=== PATIENT | female | born 1985 | race Caucasian/White ===

== ENCOUNTER 2016-11-15 12:09 | Emergency (ER) | payer OTHER ==
[~2016-11-15] VITALS: Ht 165.1 cm; Wt 113.4 kg
--- NOTE | 2016-11-15 12:40 | ED Chest Pain ---
General Chief Complaint: Chest Pain Stated Complaint: CHEST/SOB/PAIN IN BACK Nursing Triage Note: PT C/O CHEST PAIN ACCOMPANIED BY DYSPNEA AND DIAPHORESIS SINCE 1000 THIS AM. SHE STATES IT GOES ALL ACROSS HER CHEST AND RADIATES TO HER BACK. SHE DENIES N/V OR ANY OTHER S/S AT THIS TIME. Nursing Sepsis Screen: No Definite Risk Source: patient Exam Limitations: no limitations History of Present Illness Time seen by provider: 12:36 Initial Comments To ER with reports of chest pain. She was at work today she developed this chest pain at 10 a.m. This was a sharp pain in the left side of her chest that began to spread to the right side of her chest and through to her back. She also had palpitations. She states that her blood pressure was checked at that time and found to be 180/100. She does have a history of hypertension and she takes Norvasc for this. She did have some sweating and shortness of breath associated with this but no syncope or near syncope. She is a nonsmoker. She does not feel anxious. She has no history of heart disease that she knows of other than hypertension. She states that her father did of congestive heart failure at the age of 50. Timing/Duration: 1-3 hours Severity/Quality: moderate Location: central Radiation: no radiation Activities at Onset: none Prior CP/Workup: no prior chest pain, no prior cardiac workup ASA po SALES EFFECTIVENESS MANAGER: No NTG SL SALES EFFECTIVENESS MANAGER: No Associated Symptoms: No abdominal pain, back pain, diaphoresis, No dizziness, No edema, No fatigue, No fever/chills, No headache, No heartburn, No nausea/ vomiting, No rash, shortness of breath, No swelling/lump in chest, No syncope, No weakness Allergies and Home Medications Allergies Coded Allergies: No Allergy Information Available (Unverified , 11/15/16) Review of Systems Constitutional: see HPI, No chills, No fever EENTM: No Symptoms Reported Respiratory: See HPI, Denies Cough, Denies Orthopnea, Shortness of Air Cardiovascular: No Symptoms Reported, Denies Chest Pain, Denies Edema, Denies Irregular Heart Rate, Denies Lightheadedness, Palpitations Gastrointestinal: No Symptoms Reported Genitourinary: No Symptoms Reported Musculoskeletal: no symptoms reported Skin: no symptoms reported Psychiatric/Neurological: No Symptoms Reported Endocrine: No Symptoms Reported Hematologic/Lymphatic: No Symptoms Reported Past Iivpwee-Cqlnis-Eryisu Hx Patient Social History Alcohol Use: Denies Use Recreational Drug Use: No Smoking Status: Never a Smoker 2nd Hand Smoke Exposure: No Recent Foreign Travel: No Contact w/Someone Who Travel: No Recent Infectious Disease Expo: No Recent Hopitalizations: No Seasonal Allergies Seasonal Allergies: No Surgeries Surgeries: Gallbladder Cardiovascular Cardiac Disorders: Hypertension Physical Exam Vital Signs Vital Sign - Last 12Hours Capillary Refill : Less Than 3 Seconds General Appearance: No Apparent Distress, WD/WN, Obese HEENT: PERRL/EOMI, TMs Normal Neck: Full Range of Motion, Normal Inspection Respiratory: Chest Non Tender, Lungs Clear, Normal Breath Sounds, No Accessory Muscle Use, No Respiratory Distress Cardiovascular: Regular Rate, Rhythm, No Edema, Normal Peripheral Pulses Gastrointestinal: Non Tender, Soft Extremity: Normal Capillary Refill, Normal Inspection Neurologic/Psychiatric: Alert, Oriented x3, No Motor/Sensory Deficits Skin: Normal Color, Warm/Dry Progress/Results/Core Measures Results/Orders Lab Results Laboratory Tests Test 11/15/16 12:40 11/15/16 12:42 Range/Units Urine Color YELLOW Urine Clarity CLEAR Urine pH 7 5-9 Urine Specific [place] 1.010 L 1.016-1.022 Urine Protein NEGATIVE NEGATIVE Urine Glucose (UA) NEGATIVE NEGATIVE Urine Ketones NEGATIVE NEGATIVE Urine Nitrite NEGATIVE NEGATIVE Urine Bilirubin NEGATIVE NEGATIVE Urine Urobilinogen NORMAL NORMAL MG/DL Urine Leukocyte Esterase NEGATIVE NEGATIVE Urine RBC (Auto) NEGATIVE NEGATIVE Urine RBC NONE /HPF Urine WBC 2-5 /HPF Urine Squamous Epithelial Cells 10-25 H /HPF Urine Crystals NONE /LPF Urine Bacteria FEW H /HPF Urine Casts NONE /LPF Urine Mucus NEGATIVE /LPF Urine Culture Indicated NO Urine Opiates Screen NEGATIVE NEGATIVE Urine Oxycodone Screen NEGATIVE NEGATIVE Urine Methadone Screen NEGATIVE NEGATIVE Urine Propoxyphene Screen NEGATIVE NEGATIVE Urine Barbiturates Screen NEGATIVE NEGATIVE Ur Tricyclic Antidepressants Screen NEGATIVE NEGATIVE Urine Phencyclidine Screen NEGATIVE NEGATIVE Urine Amphetamines Screen NEGATIVE NEGATIVE Urine Methamphetamines Screen NEGATIVE NEGATIVE Urine Benzodiazepines Screen NEGATIVE NEGATIVE Urine Cocaine Screen NEGATIVE NEGATIVE Urine Cannabinoids Screen NEGATIVE NEGATIVE White Blood Count 9.8 4.3-11.0 10^3/uL Red Blood Count 4.97 4.35-5.85 10^6/uL Hemoglobin 13.1 11.5-16.0 G/DL Hematocrit 39 35-52 % Mean Corpuscular Volume 79 L 80-99 FL Mean Corpuscular Hemoglobin 26 25-34 PG Mean Corpuscular Hemoglobin Concent 33 32-36 G/DL Red Cell Distribution Width 13.9 10.0-14.5 % Platelet Count 334 130-400 10^3/uL Mean Platelet Volume 10.2 7.4-10.4 FL Neutrophils (%) (Auto) 69 42-75 % Lymphocytes (%) (Auto) 19 12-44 % Monocytes (%) (Auto) 7 0-12 % Eosinophils (%) (Auto) 4 0-10 % Basophils (%) (Auto) 1 0-10 % Neutrophils # (Auto) 6.8 1.8-7.8 X 10^3 Lymphocytes # (Auto) 1.9 1.0-4.0 X 10^3 Monocytes # (Auto) 0.7 0.0-1.0 X 10^3 Eosinophils # (Auto) 0.4 H 0.0-0.3 10^3/uL Basophils # (Auto) 0.1 0.0-0.1 10^3/uL D-Dimer 0.55 H 0.00-0.49 UG/ML Sodium Level 141 135-145 MMOL/L Potassium Level 3.3 L 3.6-5.0 MMOL/L Chloride Level 109 H 98-107 MMOL/L Carbon Dioxide Level 22 21-32 MMOL/L Anion Gap 10 5-14 MMOL/L Blood Urea Nitrogen 9 7-18 MG/DL Creatinine 0.67 0.60-1.30 MG/DL Estimat Glomerular Filtration Rate > 60 BUN/Creatinine Ratio 13 Glucose Level 89 70-105 MG/DL Calcium Level 9.1 8.5-10.1 MG/DL Total Bilirubin 0.2 0.1-1.0 MG/DL Aspartate Amino Transf (AST/SGOT) 10 5-34 U/L Alanine Aminotransferase (ALT/SGPT) 12 0-55 U/L Alkaline Phosphatase 72 40-136 U/L Total Protein 7.2 6.4-8.2 GM/DL Albumin 3.8 3.2-4.5 GM/DL Lipase 35 8-78 U/L My Orders Orders - CARSON WILLAMS INSPECTOR BALANCE TRUING Cbc With Automated Diff (11/15/16 12:26) Comprehensive Metabolic Panel (11/15/16 12:26) Lipase (11/15/16 12:26) Urine Bedside (11/15/16 12:26) Ua Culture If Indicated (11/15/16 12:26) Drug Screen Stat (Urine) (11/15/16 12:26) Saline Lock/Iv-Start (11/15/16 12:26) Ekg Tracing (11/15/16 12:26) Continuous Ekg Monitoring (11/15/16 12:26) Fibrin Degradation Products (11/15/16 12:26) Chest Pa/Lat (2 View) (11/15/16 12:26) Ct Angio Chest W (11/15/16 13:59) Iohexol Injection (Omnipaque 350 Mg/Ml 1 (11/15/16 14:15) Ns (Ivpb) (Sodium Chloride 0.9% Ivpb Bag (11/15/16 14:15) Medications Given in ED Current Medications Medications Dose Ordered Sig/Isai Route Start Time Stop Time Status Last Admin Dose Admin Iohexol 150 ml ONCE ONCE IV 11/15/16 14:15 11/15/16 14:16 DC 11/15/16 14:12 125 ML Sodium Chloride 100 ml ONCE ONCE IV 11/15/16 14:15 11/15/16 14:16 DC 11/15/16 14:12 80 ML Vital Signs/I&O Vital Sign - Last 12Hours 11/15/16 11/15/16 12:15 12:15 Temp 98.9 Pulse 82 Resp 30 B/P (MAP) 135/88 Pulse Ox 98 O2 Delivery Room Air Room Air Blood Pressure Mean: 104 Departure Communication Progress Notes Discussed the CT findings with radiologist Dr. Trejo. Differential diagnosis would include a teratoma, thymic cyst, lymphoma (however there is no other lymphadenopathy). He would recommend a next step as a PET CT to determine the metabolic state of this mass, then either CT-guided biopsy or open surgical biopsy. [id number] did make an appointment for the patient with Dr. Naranjo, cardiothoracic surgeon in [place] for November 18 at 1115 a.m. we will also fax a copy of this to her primary care physician. Impression Impression: Primary Impression: mediastinal cystic mass Additional Impression: Chest pain Disposition: 01 HOME, SELF-CARE Condition: Stable Departure-Patient Inst. Decision time for Depature: 15:24 Referrals: ROSENDA MOODY (PCP/Family) Primary Care Physician Patient Instructions: Chest Pain (DC) Add. Discharge Instructions: 1. Your scheduled to see Dr. Naranjo at [facility] in [place]. Address is [address] [place] [address]. Phone number is [phone]. Your scheduled to see him this November 18 1115 a.m. 2. Return to ER for any concerns 3. Follow-up with Haja Moody as well All discharge instructions reviewed with patient and/or family. Voiced understanding. CARSON WILLAMS APRN Nov 15, 2016 12:40
[2016-11-15 12:49] LABS: BILIRUBIN,URINE NEGATIVE (NEGATIVE); KETONES,URINE NEGATIVE (NEGATIVE); LEUKOCYTE ESTERASE ,URINE NEGATIVE (NEGATIVE); NITRITE,URINE NEGATIVE (NEGATIVE); PH,URINE 7 (5-9); PROTEIN,URINE NEGATIVE (NEGATIVE); UROBILINOGEN,URINE NORMAL (NORMAL)
--- NOTE | 2016-11-15 13:21 | Diagnostic Imaging Report ---
EXAMINATION: PA and lateral chest at 1:17 PM. INDICATION: Dyspnea, diaphoresis. COMPARISON: There are no prior studies available for comparison. FINDINGS: The heart size is within normal limits. The lungs are clear. There is no sign of failure, pneumonia, or pleural effusion to suggest an acute abnormality. The mediastinum is not widened. The osseous structures are intact. IMPRESSION: There is no evidence for an acute cardiopulmonary abnormality. Dictated by: Dictated on workstation # [id number]
[2016-11-15 13:33] LABS: BASOPHILS # (AUTO) 0.1 10^3/uL (0.0-0.1); BASOPHILS % (AUTO) 1 % (0-10); EOSINOPHILS # (AUTO) 0.4 10^3/uL (0.0-0.3); EOSINOPHILS % (AUTO) 4 % (0-10); LYMPHOCYTES # (AUTO) 1.9 X 10^3 (1.0-4.0); LYMPHOCYTES % (AUTO) 19 % (12-44); MEAN CORPUSCULAR HEMOGLOBIN 26 PG (25-34); MEAN CORPUSCULAR HGB CONC 33 G/DL (32-36); MEAN CORPUSCULAR VOLUME 79 FL (80-99); MEAN PLATELET VOLUME 10.2 FL (7.4-10.4); MONOCYTES # (AUTO) 0.7 X 10^3 (0.0-1.0); MONOCYTES % (AUTO) 7 % (0-12); NEUTROPHILS # (AUTO) 6.8 X 10^3 (1.8-7.8); NEUTROPHILS % (AUTO) 69 % (42-75); PLATELET COUNT 334 10^3/uL (130-400); RED BLOOD COUNT 4.97 10^6/uL (4.35-5.85); RED CELL DISTRIBUTION WIDTH 13.9 % (10.0-14.5); WHITE BLOOD COUNT 9.8 10^3/uL (4.3-11.0)
[2016-11-15 13:58] LABS: ALANINE AMINOTRANSFERASE 12 U/L (0-55); ALBUMIN 3.8 GM/DL (3.2-4.5); ANION GAP 10 MMOL/L (5-14); ASPARTATE AMINO TRANSFERASE 10 U/L (5-34); BILIRUBIN,TOTAL 0.2 MG/DL (0.1-1.0); BLOOD UREA NITROGEN 9 MG/DL (7-18); BUN/CREATININE RATIO 13; CALCIUM 9.1 MG/DL (8.5-10.1); CARBON DIOXIDE 22 MMOL/L (21-32); CHLORIDE 109 MMOL/L (98-107); CREATININE SERUM 0.67 MG/DL (0.60-1.30); GFR ESTIMATED > 60; GLUCOSE 89 MG/DL (70-105); LIPASE 35 U/L (8-78); POTASSIUM 3.3 MMOL/L (3.6-5.0); SODIUM 141 MMOL/L (135-145); TOTAL PROTEIN 7.2 GM/DL (6.4-8.2)
[2016-11-15] MEDS ORDERED: NS 100 ML (IVPB) BAG IV ONE (14:15)
[2016-11-15] MEDS ORDERED: IOHEXOL 350 MG/ML 150 ML (OMNIPAQUE 350) VIAL IV ONE (14:15)
--- NOTE | 2016-11-15 15:13 | Diagnostic Imaging Report ---
PROCEDURE: CT angiography of the chest with contrast. TECHNIQUE: Multiple contiguous axial images were obtained through the chest after uneventful bolus administration of intravenous contrast. Reconstructed CTA MIP acquisitions were also performed. INDICATION: Shortness of breath. Chest pain. 125 mL of Omnipaque 350 is administered intravenously. FINDINGS: There is heterogenous mass with cystic and solid components in the anterior mediastinum measuring 5.1 x 9 x 6.2 cm. This could relate to a teratoma, lymphoma with cystic changes or a complicated thymic cyst. No calcification is seen. No fat content. There is also no significant lymphadenopathy in the mediastinum or mag. No significant lymphadenopathy in the axilla. The thoracic aorta is normal in caliber. No dissection. The pulmonary arteries are well opacified with no filling defects to suggest pulmonary embolism. No significant consolidation, mass or suspicious nodule seen in the lungs. The heart size is normal. No pericardial effusion. No pleural effusion. Sections of the upper abdomen and the osseous structures appear grossly unremarkable. IMPRESSION: Heterogenous anterior mediastinal mass with fluid density components. Differential may include a teratoma, multiloculated thymic cyst or lymphoma. Consider further evaluation with PET/CT. The findings were discussed with Ike Drew, ER physician health assistant taking care of the patient at time of dictation. Dictated by: Dictated on workstation # [id number]
[2016-11-15 15:37] VITALS: BP 137/94
--- OUTSIDE RECORDS SUMMARY | 2016-11-24 18:19 | XMS REPORT ---
Author Author KIRAN MOODY [facility] Address [address] [place], [place] [id number] Care Team Providers Care Shook Machine Operator Name Role Phone KIRAN MOODY PCP Unavailable Allergies and Adverse Reactions Name Reaction Notes Albuterol Plan of Treatment Planned Activity Comments Planned Date Planned Time Plan/Goal CBC with Differential 04/23/2016 12:00 AM CMP 04/23/2016 12:00 AM .Lipid Panel 04/23/2016 12:00 AM THYROID PANEL. 04/23/2016 12:00 AM THYROID PANEL. 04/23/2016 12:00 AM THYROID PANEL. 04/23/2016 12:00 AM Medications Active Name Start Date Estimated Completion Date SIG Comments enalapril maleate 20 mg oral tablet 10/25/2013 take 1 tablet (20 mg) by oral route once daily enalapril maleate 20 mg oral tablet 04/01/2014 TAKE ONE TABLET BY MOUTH EVERY DAY amlodipine 5 mg oral tablet 05/27/2014 TAKE ONE TABLET BY MOUTH EVERY DAY enalapril maleate 20 mg oral tablet 07/11/2014 TAKE ONE TABLET BY MOUTH ONCE DAILY amlodipine 5 mg oral tablet 08/30/2014 TAKE ONE TABLET BY MOUTH EVERY DAY enalapril maleate 20 mg oral tablet 10/18/2014 TAKE ONE TABLET BY MOUTH ONCE DAILY Sprintec (28) 0.25-35 mg-mcg oral tablet 01/07/2015 take 1 tablet by oral route once daily fluticasone 50 mcg/actuation nasal spray,suspension 03/04/2015 inhale 1 spray (50 mcg) in each nostril by intranasal route 2 times per day promethazine-codeine 6.25-10 mg/5 mL oral syrup 06/05/2015 take 5 milliliters by oral route every 4-6 hours as needed, not to exceed 30 mL in 24 hours enalapril maleate 20 mg oral tablet 07/10/2015 TAKE ONE TABLET BY MOUTH ONCE DAILY Synthroid 88 mcg oral tablet 09/01/2015 take 1 tablet (88 mcg) by oral route once daily for 30 days amlodipine 5 mg oral tablet 09/08/2015 TAKE ONE TABLET BY MOUTH ONCE DAILY enalapril maleate 20 mg oral tablet 11/17/2015 TAKE ONE TABLET BY MOUTH ONCE DAILY levothyroxine 88 mcg oral tablet 12/03/2015 TAKE ONE TABLET BY MOUTH ONCE DAILY Sprintec (28) 0.25-35 mg-mcg oral tablet 12/15/2015 TAKE ONE TABLET BY MOUTH ONCE DAILY prednisone 20 mg oral tablet 03/12/2016 4 for two days, 3 for 2 days, 2 for 2 days, 1 for 2 days citalopram 20 mg oral tablet 04/05/2016 TAKE ONE TABLET BY MOUTH ONCE DAILY Name Start Date Expiration Date SIG Comments Reglan 10 mg oral tablet 05/07/2009 1 tablet tid Cipro 500 mg oral tablet 11/24/2009 take 1 tablet (500 mg) by oral route every 12 hours Benicar HCT 20-12.5 mg oral tablet 08/21/2010 take 1 tablet by oral route once daily Zithromax Z-[place] 250 mg oral tablet 05/15/2013 take 2 tablets (500 mg) by oral route once daily for 1 day then 1 tablet (250 mg) by oral route once daily for 4 days Phenergan-Codeine 6.25-10 mg/5 mL oral syrup 07/26/2013 take 5 milliliters by oral route 4 times a day Zithromax Z-[place] 250 mg oral tablet 07/26/2013 take 2 tablets (500 mg) by oral route once daily for 1 day then 1 tablet (250 mg) by oral route once daily for 4 days Bactrim DS 800-160 mg oral tablet 12/12/2013 12/22/2013 take 1 tablet by oral route 2 times a day for 10 days prednisone 20 mg oral tablet 12/12/2013 12/20/2013 4x2 days 3x2 days 2x2 days 1x2 days Phenergan-Codeine 6.25-10 mg/5 mL oral syrup 07/26/2014 take 5 milliliters by oral route 4 times a day Synthroid 88 mcg oral tablet 02/11/2015 05/12/2015 take 1 tablet (88 mcg) by oral route once daily for 30 days Celexa 20 mg oral tablet 12/03/2015 04/01/2016 take 1 tablet (20 mg) by oral route once daily for 30 days Zithromax Z-[place] 250 mg oral tablet 03/12/2016 03/17/2016 take 2 tablets ( 500 mg) by oral route once daily for 1 day then 1 tablet (250 mg) by oral route once daily for 4 days Discontinued Name Start Date Discontinued Date SIG Comments Keflex 500 mg oral capsule 06/05/2015 12/04/2015 one PO TID Problem List Description Status Onset *No known medical problems Active Essential Hypertension Active 02/14/2015 Hypothyroidism, Acquired Active 02/14/2015 Obesity Active 02/14/2015 Fatigue Active 02/14/2015 Hyperlipidemia, mixed Active 02/14/2015 Depressive Disorder Active 12/04/2015 Stress at home Active 12/04/2015 Vital Signs Date Time BP-Sys(mm[Hg] BP-Amy(mm[Hg]) HR(bpm) RR(rpm) Temp WT HT HC BMI BSA BMI Percentile O2 Sat(%) 12/03/2015 10:27:00 AM 150 mmHg 100 mmHg 76 bpm 18 rpm 97.4 F 245 lbs 65 in 40.77 kg/m2 2.26 m2 96 % 06/04/2015 11:34:00 AM 142 mmHg 70 mmHg 86 bpm 18 rpm 97.8 F 259 lbs 65 in 43.0994 kg/m 2.3212 m 99 % 02/24/2015 1:38:00 PM 140 mmHg 70 mmHg 76 bpm 16 rpm 98 F 259 lbs 65 in 43.10 kg/m2 2.32 m2 100 % 02/11/2015 10:31:00 AM 140 mmHg 80 mmHg 96 bpm 18 rpm 98 F 264 lbs 65 in 43.9314 kg/m 2.3435 m 100 % 11/20/2014 1:42:00 PM 120 mmHg 70 mmHg 74 bpm 18 rpm 98.1 F 259 lbs 65 in 43.10 kg/m2 2.32 m2 98 % 09/18/2014 11:30:00 AM 140 mmHg 85 mmHg 110 bpm 18 rpm 97.8 F 257 lbs 65 in 42.7666 kg/m 2.3122 m 98 % 07/26/2014 1:19:00 PM 160 mmHg 90 mmHg 79 bpm 18 rpm 96.1 F 261 lbs 65 in 43.43 kg/m2 2.33 m2 98 % 12/12/2013 12:31:00 PM 140 mmHg 70 mmHg 94 bpm 20 rpm 97.6 F 253 lbs 65 in 42.101 kg/m 2.2941 m 99 % 11/06/2013 11:05:00 AM 122 mmHg 62 mmHg 80 bpm 16 rpm 97.3 F 254 lbs 65 in 42.27 kg/m2 2.30 m2 100 % 06/19/2013 1:48:00 PM 122 mmHg 68 mmHg 88 bpm 16 rpm 98.2 F 243 lbs 65 in 40.4369 kg/m 2.2483 m 99 % 06/11/2013 5:12:00 PM 120 mmHg 70 mmHg 84 bpm 16 rpm 98.8 F 244 lbs 65 in 40.60 kg/m2 2.25 m2 99 % 05/14/2013 2:08:00 PM 120 mmHg 68 mmHg 84 bpm 16 rpm 97.5 F 248.562 lbs 65 in 41.3625 kg/m 2.2739 m 99 % 04/09/2010 11:02:00 AM 132 mmHg 86 mmHg 76 bpm 241 lbs 02/23/2010 9:02:00 AM 152 mmHg 100 mmHg 76 bpm 232 lbs 02/17/2010 10:29:00 AM 148 mmHg 110 mmHg 11/24/2009 9:49:00 AM 122 mmHg 86 mmHg 76 bpm 241 lbs 05/07/2009 9:12:00 AM 126 mmHg 84 mmHg 84 bpm 244 lbs Social History Name Description Comments denies alcohol use Tobacco Never smoker History of Procedures Date Ordered Description Order Status 02/05/2015 12:00 AM COMPLETE CBC W/AUTO DIFF WBC Reviewed 02/05/2015 12:00 AM COMPREHEN METABOLIC PANEL Reviewed 02/05/2015 12:00 AM LIPID PANEL Reviewed 02/05/2015 12:00 AM ASSAY OF TOTAL THYROXINE Reviewed 02/05/2015 12:00 AM ASSAY THYROID STIM HORMONE Reviewed 02/05/2015 12:00 AM ASSAY OF THYROID (T3 OR T4) Reviewed 02/24/2015 12:00 AM Decadron, Per 1 Mg [facility]# [address]-48 Reviewed 02/24/2015 12:00 AM Depo-Medrol, Per 80 Mg [facility]#8509-3391-03 Reviewed 06/04/2015 12:00 AM ASSAY OF TOTAL THYROXINE Reviewed 06/04/2015 12:00 AM ASSAY THYROID STIM HORMONE Reviewed 06/04/2015 12:00 AM ASSAY OF THYROID (T3 OR T4) Reviewed 06/05/2015 12:00 AM Decadron, Per 1 Mg [facility]# [address]-13 Reviewed 06/05/2015 12:00 AM Depo-Medrol, Per 80 Mg [facility]#1463-4150-57 Reviewed 06/05/2015 12:00 AM Rocephin 1 gram [facility]#8559-4753-88 Reviewed 06/19/2013 12:00 AM THER/PROPH/DIAG INJ SC/IM Reviewed 06/19/2013 12:00 AM Decadron, Per 12 Mg [facility]# [address]-44 Reviewed 11/24/2009 12:00 AM THER/PROPH/DIAG INJ SC/IM Reviewed 11/24/2009 12:00 AM Decadron Inj.8mg-([facility]) [facility] #[id number] Reviewed 11/24/2009 12:00 AM Depo-Medrol 120 Mg Im/[facility] [id number] Reviewed 12/12/2013 12:00 AM CYTOPATH C/V THIN LAYER Reviewed 12/12/2013 12:00 AM SPECIMEN HANDLING OFFICE-LAB Reviewed 09/18/2014 12:00 AM THER/PROPH/DIAG INJ SC/IM Reviewed 09/18/2014 12:00 AM Decadron, Per 1 Mg [facility]# [address]-22 Reviewed 09/18/2014 12:00 AM Depo-Medrol, Per 80 Mg [facility]#2785-0738-40 Reviewed 09/18/2014 12:00 AM Rocephin 1 gram [facility]#0977-8126-16 Reviewed Results Summary Data and Description Results 09/04/2009 7:35 PM TEST NEGATIVE 02/06/2015 6:20 AM WBC 10.7 RBC 5.03 HGB 13.70 g/dLHCT 41.10 %MCV 82.0 fLMCH 27.20 pgMCHC 33.30 g/dLRDW SD 40 RDW CV 13.30 %MPV 9.50 fLPLT 247 NRBC# 0.00 NRBC% 0.0 %NEUT 68.60 %%LYMP 20.10 %%MONO 6.60 %%EOS 4.20 %%BASO 0.50 %#NEUT 7.32 #LYMP 2.15 #MONO 0.71 #EOS 0.45 #BASO 0.05 MANUAL DIFF NOT IND TRIGLYCERIDES 188.0 mg/dLCHOLESTEROL 208.0 mg/dLHDL 39.0 mg/dLTOT CHOL/HDL 5.3 LDL (CALC) 131.0 mg/dLGLUCOSE 82.0 mg/dLSODIUM 141.0 mmol/LPOTASSIUM 3.60 mmol/ LCHLORIDE 110.0 mmol/LCO2 19.0 mmol/LBUN 10.0 mg/dLCREATININE 0.70 mg/dLSGOT/ AST 13.0 IU/LSGPT/ALT 17.0 IU/LALK PHOS 74.0 IU/LTOTAL PROTEIN 6.90 g/dLALBUMIN 3.90 g/dLTOTAL BILI 0.50 mg/dLCALCIUM 8.90 mg/dLAGE 30 GFR NonAA 100 GFR AA 121 eGFR >60 mL/min/1.73meGFR AA* >60 FREE T4 0.90 TSH 2.30 uIU/mL 06/04/2015 4:22 PM FREE T4 0.85 TSH 0.280 uIU/mL 06/14/2015 7:12 AM Insulin 36.1 History Of Immunizations Not available. History of Past Illness Name Date of Onset Comments Abdominal Pain, LUQ May 07 2009 9:13AM Headache Hypertension Thyroid disorder Cough Nov 24 2009 9:50AM Bronchitis, Acute Nov 24 2009 9:50AM Seasonal Allergies Nov 24 2009 9:50AM *No known medical problems Essential Hypertension Feb 23 2010 9:03AM Headache Feb 23 2010 9:03AM Body Mass Index [BMI]; body mass index between 30-39, adult; body mass index 30.0-30.9, adult Feb 23 2010 9:03AM Essential Hypertension Apr 09 2010 11:02AM Essential Hypertension 02/14/2015 Hypothyroidism, Acquired 02/14/2015 Obesity 02/14/2015 Fatigue 02/14/2015 Hyperlipidemia, mixed 02/14/2015 Depressive Disorder 12/04/2015 Stress at home 12/04/2015 Nasopharyngitis, Acute (Common Cold) May 14 2013 2:09PM Eustachian Tube Dysfunction May 14 2013 2:09PM Post-nasal drainage May 14 2013 2:09PM Allergic angioedema Jun 19 2013 1:48PM Contact Dermatitis Jun 19 2013 1:48PM Cough Jul 25 2013 5:13PM Upper Respiratory Infection Jul 25 2013 5:13PM Respiratory System And Chest Symptoms Jul 25 2013 5:13PM Rotator cuff tendonitis, right Nov 06 2013 11:06AM Foot pain, left Nov 06 2013 11:06AM Essential Hypertension Dec 12 2013 10:07AM Contraceptive Counseling Dec 12 2013 10:07AM Routine gynecological examination Dec 12 2013 10:07AM Sinusitis Dec 12 2013 10:07AM Cough Jul 26 2014 1:20PM Post-nasal drainage Jul 26 2014 1:20PM Upper Respiratory Infection Jul 26 2014 1:20PM Lumbago Jul 26 2014 1:20PM Pharyngitis, Acute Sep 18 2014 11:31AM Post-nasal drainage Sep 18 2014 11:31AM Routine gynecological examination Nov 20 2014 1:43PM Fatigue Feb 05 2015 1:01PM Hypertension Feb 05 2015 1:01PM Hyperlipemia Feb 05 2015 1:01PM Essential Hypertension Feb 11 2015 10:31AM Hypothyroidism, Acquired Feb 11 2015 10:31AM Fatigue Feb 11 2015 10:31AM Obesity Feb 11 2015 10:31AM control Feb 11 2015 10:31AM Hyperlipidemia, mixed Feb 11 2015 10:31AM Moderate Acute Cough Feb 24 2015 1:40PM Moderate Recurrent Seasonal Allergies Feb 24 2015 1:40PM Severe Acute Post-nasal drainage Feb 24 2015 1:40PM Hypothyroid Jun 04 2015 1:28PM Moderate Acute Cough Jun 04 2015 11:34AM Moderate Acute Post-nasal drainage Jun 04 2015 11:34AM Upper respiratory tract infection, unspecified type Jun 04 2015 11:34AM Respiratory System And Chest Symptoms Jun 04 2015 11:34AM Essential hypertension with goal blood pressure less than 130/85 Dec 03 2015 10:27AM Moderate Hypothyroidism, Acquired Dec 03 2015 10:27AM Depressive Disorder Dec 03 2015 10:27AM Obesity Dec 03 2015 10:27AM Dietary Counseling Dec 03 2015 10:27AM Exercise Counseling Dec 03 2015 10:27AM 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 Dec 03 2015 10:27AM Stress at home Dec 03 2015 10:27AM Fatigue Apr 23 2016 10:38AM Hypertension Apr 23 2016 10:38AM Hyperlipemia Apr 23 2016 10:38AM Payers Insurance Name Company Name Plan Name Plan Number Policy Number Policy Group Number Start Date [facility] [id number] N/A [facility] [id number] [id number] N/A [facility] [id number] N/A History of Encounters Visit Date Visit Type Provider 12/03/2015 Office visit KIRAN PRETTY 06/04/2015 Office visit KIRAN MOODY PA 02/24/2015 Office visit KIRAN PRETTY 02/11/2015 Office visit KIRAN MOODY PA 11/20/2014 Office visit KIRAN PRETTY 09/18/2014 Office visit 09/18/2014 Office visit KIRAN PRETTY 07/26/2014 Office visit KIRAN PRETTY 12/12/2013 Office visit KIRAN PRETTY 11/06/2013 Office visit KIRAN MOODY PA 06/19/2013 Office visit KIRAN MOODY PA 06/11/2013 Office visit KIRAN MOODY PA 05/14/2013 Office visit KIRAN PRETTY 04/09/2010 Office visit Kiran Moody PA-C 02/23/2010 Office visit Kiran Moody PA-C 11/24/2009 Office visit Kiran Moody PA-C 05/07/2009 Office visit Kiran JARRELLC
--- OUTSIDE RECORDS SUMMARY | 2016-11-24 18:21 | XMS REPORT ---
Author Author KIRAN MOODY [facility] Address [address] [place], [place] [id number] Care Team Providers Care Cement Or Concrete Finishing Supervisor Name Role Phone KIRAN MOODY PCP Unavailable Allergies and Adverse Reactions Name Reaction Notes Albuterol Plan of Treatment Not available. Medications Active Name Start Date Estimated Completion [...] Onset *No known medical problems Active Essential hypertension Active 02/14/2015 Hypothyroidism, Acquired Active 02/14/2015 Obesity [...] 02/24/2015 12:00 AM Decadron, Per 1 Mg [facility]# [id number] Reviewed 02/24/2015 12:00 AM Depo-Medrol, Per 80 Mg [facility]#3588-7533-56 Reviewed 06/04/2015 12:00 AM ASSAY OF TOTAL THYROXINE Reviewed 06/04/2015 12:00 AM ASSAY THYROID STIM HORMONE Reviewed 06/04/2015 12:00 AM ASSAY OF THYROID (T3 OR T4) Reviewed 06/05/2015 12:00 AM Decadron, Per 1 Mg [facility]# [address]-19 Reviewed 06/05/2015 12:00 AM Depo-Medrol, Per 80 Mg [facility]#2164-7253-41 Reviewed 06/05/2015 12:00 AM Rocephin 1 gram [facility]#4352-4103-93 Reviewed 04/23/2016 12:00 AM COMPLETE CBC W/AUTO DIFF WBC Returned 04/23/2016 12:00 AM COMPREHEN METABOLIC PANEL Returned 04/23/2016 12:00 AM LIPID PANEL Returned 04/23/2016 12:00 AM ASSAY OF TOTAL THYROXINE Returned 04/23/2016 12:00 AM ASSAY THYROID STIM HORMONE Returned 04/23/2016 12:00 AM ASSAY OF THYROID (T3 OR T4) Returned 06/19/2013 12:00 AM THER/PROPH/DIAG INJ SC/IM Reviewed 06/19/2013 12:00 AM Decadron, Per 12 Mg [facility]# [address]-23 Reviewed 11/24/2009 12:00 AM THER/PROPH/DIAG INJ SC/IM Reviewed 11/24/2009 12:00 AM Decadron Inj.8mg-([facility]) [facility] #[id number] Reviewed 11/24/2009 12:00 AM Depo-Medrol 120 Mg Im/[facility] [id number] Reviewed 12/12/2013 12:00 AM CYTOPATH C/V THIN LAYER Reviewed 12/12/2013 12:00 AM SPECIMEN HANDLING OFFICE-LAB Reviewed 09/18/2014 12:00 AM THER/PROPH/DIAG INJ SC/IM Reviewed 09/18/2014 12:00 AM Decadron, Per 1 Mg [facility]# [address]-66 Reviewed 09/18/2014 12:00 AM Depo-Medrol, Per 80 Mg [facility]#7959-1632-44 Reviewed 09/18/2014 12:00 AM Rocephin 1 gram [facility]#9450-9354-48 Reviewed Results Summary Data and Description Results [...] 0.280 uIU/mL 06/14/2015 7:12 AM Insulin 36.1 04/26/2016 9:12 AM WBC 8.9 RBC 5.13 HGB 13.70 g/dLHCT 41.70 %MCV 81.0 fLMCH 26.70 pgMCHC 32.90 g/dLRDW SD 37 RDW CV 12.40 %MPV 9.60 fLPLT 270 NRBC# 0.00 NRBC% 0.0 %NEUT 61.0 %%LYMP 25.0 %%MONO 5.50 %%EOS 7.30 %%BASO 1.10 %#NEUT 5.45 #LYMP 2.23 #MONO 0.49 #EOS 0.65 #BASO 0.10 MANUAL DIFF NOT IND GLUCOSE 79.0 mg/ dLSODIUM 140.0 mmol/LPOTASSIUM 3.50 mmol/LCHLORIDE 110.0 mmol/LCO2 21.0 mmol/ LBUN 9.0 mg/dLCREATININE 0.70 mg/dLSGOT/AST 11.0 IU/LSGPT/ALT 12.0 IU/LALK PHOS 67.0 IU/LTOTAL PROTEIN 6.70 g/dLALBUMIN 3.60 g/dLTOTAL BILI 0.20 mg/dLCALCIUM 8.70 mg/dLAGE 31 GFR NonAA 99 GFR AA 120 eGFR >60 mL/min/1.73meGFR AA* >60 TRIGLYCERIDES 115.0 mg/dLCHOLESTEROL 210.0 mg/dLHDL 50.0 mg/dLTOT CHOL/HDL 4.2 LDL (CALC) 137.0 mg/dLFREE T4 0.79 TSH 0.540 uIU/mL History Of Immunizations Not available. History of [...] Essential Hypertension Apr 09 2010 11:02AM Essential hypertension 02/14/2015 Hypothyroidism, Acquired 02/14/2015 Obesity 02/14/2015 Fatigue [...] Counseling Dec 03 2015 10:27AM Encntr for iv therapy nurse exam (general) (routine) w/o abn findings Dec 03 2015 10:27AM Stress at home Dec 03 2015 10:27AM Fatigue Apr 23 2016 10:38AM Hypertension Apr 23 2016 10:38AM Hyperlipemia Apr 23 2016 10:38AM Payers Insurance Name Company Name Plan Name Plan Number Policy Number Policy Group Number Start Date [facility] [id number] N/A BCBS [employer] [facility] [id number] N/A BCBS [employer] [facility] [id number] N/A BCBS [employer] [facility] [id number] N/A History of Encounters Visit Date Visit Type Provider 12/03/2015 Office visit KIRAN PRETTY 06/04/2015 Office visit KIRAN PRETTY 02/24/2015 Office visit KIRAN PRETTY 02/11/2015 Office visit KIRAN PRETTY 11/20/2014 Office visit KIRAN PRETTY 09/18/2014 Office visit 09/18/2014 Office visit KIRAN PRETTY 07/26/2014 Office visit KIRAN PRETTY 12/12/2013 Office visit KIRAN PRETTY 11/06/2013 Office visit KIRAN MOODY PA 06/19/2013 Office visit KIRAN MOODY PA 06/11/2013 Office visit KIRAN MOODY PA 05/14/2013 Office visit KIRAN MOODY PA 04/09/2010 Office visit Kiran Moody PA-C 02/23/2010 Office visit Kiran PRETTY-C 11/24/2009 Office visit Kiran PRETTY-C 05/07/2009 Office visit Kiran Moody PA-C
--- OUTSIDE RECORDS SUMMARY | 2016-11-24 18:21 | XMS REPORT ---
Author Author Kiran Arce [facility] Address [address] [place], [place] [address] Care Team Providers Care Rn Physician Office Name Role Phone Kiran Arce PCP Unavailable Allergies and Adverse Reactions Name Reaction Notes Albuterol Plan of Treatment Planned Activity Comments Planned Date Planned Time Plan/Goal CMP 05/17/2016 12:00 AM CBC with Diff, automated 05/17/2016 12:00 AM Injection, Subcutaneous/IM 06/08/2016 12:00 AM Chest PA and Lateral - Main 06/09/2016 12:00 AM EKG. 06/09/2016 12:00 AM Holter monitoring 06/09/2016 12:00 AM Medications Active Name Start Date [...] by intranasal route 2 times per day enalapril maleate 20 mg oral tablet 07/10/2015 TAKE ONE TABLET BY MOUTH ONCE DAILY amlodipine 5 mg oral tablet 09/08/2015 TAKE ONE TABLET BY MOUTH ONCE DAILY enalapril maleate 20 mg oral tablet 11/17/2015 TAKE ONE TABLET BY MOUTH ONCE DAILY Sprintec (28) 0.25-35 mg-mcg oral tablet 12/15/2015 TAKE ONE TABLET BY MOUTH ONCE DAILY citalopram 20 mg oral tablet 04/05/2016 TAKE ONE TABLET BY MOUTH ONCE DAILY levothyroxine 88 mcg oral tablet 04/30/2016 TAKE ONE TABLET BY MOUTH ONCE DAILY enalapril maleate 20 mg oral tablet 05/21/2016 TAKE ONE TABLET BY MOUTH ONCE DAILY omeprazole 40 mg oral capsule,delayed release(DR/EC) 05/24/2016 08/22/2016 take 1 capsule (40 mg) by oral route once daily before a meal for 30 days Name Start Date Expiration Date SIG Comments [...] oral capsule 06/05/2015 12/04/2015 one PO TID promethazine-codeine 6.25-10 mg/5 mL oral syrup 06/05/2015 04/30/2016 take 5 milliliters by oral route every 4-6 hours as needed, not to exceed 30 mL in 24 hours Synthroid 88 mcg oral tablet 09/01/2015 04/30/2016 take 1 tablet (88 mcg) by oral route once daily for 30 days prednisone 20 mg oral tablet 03/12/2016 04/30/2016 4 for two days, 3 for 2 days, 2 for 2 days, 1 for 2 days Problem List Description Status Onset *No known medical problems Active Essential hypertension Active 02/14/2015 Hypothyroidism, Acquired Active 02/14/2015 Obesity Active 02/14/2015 Fatigue Active 02/14/2015 Hyperlipidemia, Mixed Active 02/14/2015 Depressive Disorder Active 12/04/2015 Stress at home Active 12/04/2015 Vital Signs Date Time BP-Sys(mm[Hg] BP-Amy(mm[Hg]) HR(bpm) RR(rpm) Temp WT HT HC BMI BSA BMI Percentile O2 Sat(%) 06/09/2016 2:36:00 PM 152 mmHg 94 mmHg 91 bpm 20 rpm 96.4 F 250 lbs 65 in 41.60 kg/m2 2.28 m2 99 % 06/08/2016 9:28:00 AM 142 mmHg 90 mmHg 80 bpm 16 rpm 98.2 F 247 lbs 65 in 41.1025 kg/m 2.2668 m 97 % 05/24/2016 3:12:00 PM 144 mmHg 98 mmHg 72 bpm 20 rpm 96 F 247 lbs 65 in 41.10 kg/m2 2.27 m2 98 % 05/17/2016 2:07:00 PM 136 mmHg 98 mmHg 75 bpm 20 rpm 97.7 F 248 lbs 65 in 41.2689 kg/m 2.2713 m 98 % 04/30/2016 8:32:00 AM 132 mmHg 85 mmHg 80 bpm 16 rpm 98.2 F 248 lbs 65 in 41.27 kg/m2 2.27 m2 98 % 12/03/2015 10:27:00 AM 150 mmHg 100 mmHg 76 bpm 18 rpm 97.4 F 245 lbs 65 in 40.7697 kg/m 2.2576 m 96 % 06/04/2015 11:34:00 AM 142 mmHg 70 mmHg 86 bpm 18 rpm 97.8 F 259 lbs 65 in 43.10 kg/m2 2.32 m2 99 % 02/24/2015 1:38:00 PM 140 mmHg 70 mmHg 76 bpm 16 rpm 98 F 259 lbs 65 in 43.0994 kg/m 2.3212 m 100 % 02/11/2015 10:31:00 AM 140 mmHg 80 mmHg 96 bpm 18 rpm 98 F 264 lbs 65 in 43.93 kg/m2 2.34 m2 100 % 11/20/2014 1:42:00 PM 120 mmHg 70 mmHg 74 bpm 18 rpm 98.1 F 259 lbs 65 in 43.0994 kg/m 2.3212 m 98 % 09/18/2014 11:30:00 AM 140 mmHg 85 mmHg 110 bpm 18 rpm 97.8 F 257 lbs 65 in 42.77 kg/m2 2.31 m2 98 % 07/26/2014 1:19:00 PM 160 mmHg 90 mmHg 79 bpm 18 rpm 96.1 F 261 lbs 65 in 43.4322 kg/m 2.3301 m 98 % 12/12/2013 12:31:00 PM 140 mmHg 70 mmHg 94 bpm 20 rpm 97.6 F 253 lbs 65 in 42.10 kg/m2 2.29 m2 99 % 11/06/2013 11:05:00 AM 122 mmHg 62 mmHg 80 bpm 16 rpm 97.3 F 254 lbs 65 in 42.2674 kg/m 2.2987 m 100 % 06/19/2013 1:48:00 PM 122 mmHg 68 mmHg 88 bpm 16 rpm 98.2 F 243 lbs 65 in 40.44 kg/m2 2.25 m2 99 % 06/11/2013 5:12:00 PM 120 mmHg 70 mmHg 84 bpm 16 rpm 98.8 F 244 lbs 65 in 40.6033 kg/m 2.2529 m 99 % 05/14/2013 2:08:00 PM 120 mmHg 68 mmHg 84 bpm 16 rpm 97.5 F 248.562 lbs 65 in 41.36 kg/m2 2.27 m2 99 % 04/09/2010 11:02:00 AM 132 mmHg [...] 02/24/2015 12:00 AM Decadron, Per 1 Mg [facility]# [address]-03 Reviewed 02/24/2015 12:00 AM Depo-Medrol, Per 80 Mg [facility]#3886-0871-65 Reviewed 06/04/2015 12:00 AM ASSAY OF TOTAL THYROXINE Reviewed 06/04/2015 12:00 AM ASSAY THYROID STIM HORMONE Reviewed 06/04/2015 12:00 AM ASSAY OF THYROID (T3 OR T4) Reviewed 06/05/2015 12:00 AM Decadron, Per 1 Mg [facility]# [address]-15 Reviewed 06/05/2015 12:00 AM Depo-Medrol, Per 80 Mg [facility]#7284-9540-37 Reviewed 06/05/2015 12:00 AM Rocephin 1 gram [facility]#5153-5340-44 Reviewed 04/23/2016 12:00 AM COMPLETE CBC W/AUTO DIFF WBC Returned 04/23/2016 12:00 AM COMPREHEN METABOLIC PANEL Returned 04/23/2016 12:00 AM LIPID PANEL Returned 04/23/2016 12:00 AM ASSAY OF TOTAL THYROXINE Returned 04/23/2016 12:00 AM ASSAY THYROID STIM HORMONE Returned 04/23/2016 12:00 AM ASSAY OF THYROID (T3 OR T4) Returned 05/17/2016 12:00 AM HEPATOBILIARY SYSTEM IMAGING Returned 06/19/2013 12:00 AM THER/PROPH/DIAG INJ SC/IM Reviewed 06/19/2013 12:00 AM Decadron, Per 12 Mg [facility]# [address]-74 Reviewed 11/24/2009 12:00 AM THER/PROPH/DIAG INJ SC/IM Reviewed 11/24/2009 12:00 AM Decadron Inj.8mg-([facility]) [facility] #[id number] Reviewed 11/24/2009 12:00 AM Depo-Medrol 120 Mg Im/[facility] [id number] Reviewed 12/12/2013 12:00 AM CYTOPATH C/V THIN LAYER Reviewed 12/12/2013 12:00 AM SPECIMEN HANDLING OFFICE-LAB Reviewed 09/18/2014 12:00 AM THER/PROPH/DIAG INJ SC/IM Reviewed 09/18/2014 12:00 AM Decadron, Per 1 Mg [facility]# [address]-81 Reviewed 09/18/2014 12:00 AM Depo-Medrol, Per 80 Mg [facility]#0690-5288-98 Reviewed 09/18/2014 12:00 AM Rocephin 1 gram [facility]#6223-8668-98 Reviewed Results Summary Data and Description Results [...] Acquired 02/14/2015 Obesity 02/14/2015 Fatigue 02/14/2015 Hyperlipidemia, Mixed 02/14/2015 Depressive Disorder 12/04/2015 Stress at home [...] Counseling Dec 03 2015 10:27AM Encntr for ceramic products sales engineer exam (general) (routine) w/o abn findings Dec 03 2015 10:27AM Stress at home Dec 03 2015 10:27AM Fatigue Apr 23 2016 10:38AM Hypertension Apr 23 2016 10:38AM Hyperlipemia Apr 23 2016 10:38AM Essential Hypertension Apr 30 2016 8:32AM Hypothyroidism, Acquired Stable Apr 30 2016 8:32AM Obesity Apr 30 2016 8:32AM Moderate Acute RUQ abdominal pain Apr 30 2016 8:32AM Hyperlipidemia, Mixed Apr 30 2016 8:32AM Stress at home Apr 30 2016 8:32AM RUQ abdominal pain May 17 2016 2:07PM RUQ pain May 17 2016 2:07PM Abdominal pain, RUQ May 24 2016 3:12PM Palpitations Jun 09 2016 3:05PM Cough Jun 09 2016 3:05PM Payers Insurance Name Company Name Plan Name Plan Number Policy Number Policy Group Number Start Date [facility] [id number] N/A BCBS [employer] [facility] [id number] N/A BCBS [employer] [facility] [id number] N/A BCBS [employer]cbs [facility] [id number] N/A History of Encounters Visit Date Visit Type Provider 06/09/2016 Office visit Kiran Arce MD 06/08/2016 Office visit KIRAN PRETTY 05/24/2016 Office visit Kiran Arce MD 05/17/2016 Office visit Kiran Arce MD 04/30/2016 Office visit KIRAN PRETTY 12/03/2015 Office visit KIRAN PRETTY 06/04/2015 Office visit KIRAN PRETTY 02/24/2015 Office visit KIRAN PRETTY 02/11/2015 Office visit KIRAN PRETTY 11/20/2014 Office visit KIRAN PRETTY 09/18/2014 Office visit 09/18/2014 Office visit KIRAN MOODY PA 07/26/2014 Office visit KIRAN MOODY PA 12/12/2013 Office visit KIRAN MOODY PA 11/06/2013 Office visit KIRAN MOODY PA 06/19/2013 Office visit KIRAN MOODY PA 06/11/2013 Office visit KIRAN MOODY PA 05/14/2013 Office visit KIRAN MOODY PA 04/09/2010 Office visit Kiran Moody PA-C 02/23/2010 Office visit Kiran Moody PA-C 11/24/2009 Office visit Kiran Moody PA-C 05/07/2009 Office visit Kiran Moody PA-C
--- OUTSIDE RECORDS SUMMARY | 2016-11-24 18:22 | XMS REPORT ---
Author Author Kiran Arce [facility] Address [address] [place], [place] [address] Care Team Providers Care Promotion Specialist Name Role Phone Kiran Arce PCP Unavailable Allergies and Adverse Reactions Name Reaction Notes Albuterol Plan of Treatment Planned Activity Comments Planned Date Planned Time Plan/Goal CMP 05/17/2016 12:00 AM CBC with Diff, automated 05/17/2016 12:00 AM Hepatobiliary scan 05/17/2016 12:00 AM Medications Active Name Start Date [...] HC BMI BSA BMI Percentile O2 Sat(%) 05/17/2016 2:07:00 PM 136 mmHg 98 mmHg 75 bpm 20 rpm 97.7 F 248 lbs 65 in 41.27 kg/m2 2.27 m2 98 % 04/30/2016 8:32:00 AM 132 mmHg 85 mmHg 80 bpm 16 rpm 98.2 F 248 lbs 65 in 41.2689 kg/m 2.2713 m 98 % 12/03/2015 10:27:00 AM 150 mmHg [...] 02/24/2015 12:00 AM Decadron, Per 1 Mg [facility]# [address]-26 Reviewed 02/24/2015 12:00 AM Depo-Medrol, Per 80 Mg [facility]#3825-4617-49 Reviewed 06/04/2015 12:00 AM ASSAY OF TOTAL THYROXINE Reviewed 06/04/2015 12:00 AM ASSAY THYROID STIM HORMONE Reviewed 06/04/2015 12:00 AM ASSAY OF THYROID (T3 OR T4) Reviewed 06/05/2015 12:00 AM Decadron, Per 1 Mg [facility]NOTE 2]# [address]-76 Reviewed 06/05/2015 12:00 AM Depo-Medrol, Per 80 Mg [facility][NOTE 2]#0439-4278-33 Reviewed 06/05/2015 12:00 AM Rocephin 1 gram [facility]NOTE 2]#7602-2881-61 Reviewed 04/23/2016 12:00 AM COMPLETE CBC W/AUTO DIFF WBC Returned 04/23/2016 12:00 AM COMPREHEN METABOLIC PANEL Returned 04/23/2016 12:00 AM LIPID PANEL Returned 04/23/2016 12:00 AM ASSAY OF TOTAL THYROXINE Returned 04/23/2016 12:00 AM ASSAY THYROID STIM HORMONE Returned 04/23/2016 12:00 AM ASSAY OF THYROID (T3 OR T4) Returned 06/19/2013 12:00 AM THER/PROPH/DIAG INJ SC/IM Reviewed 06/19/2013 12:00 AM Decadron, Per 12 Mg [facility]NOTE 2[facility]# [address]-62 Reviewed 11/24/2009 12:00 AM THER/PROPH/DIAG INJ SC/IM Reviewed 11/24/2009 12:00 AM Decadron Inj.8mg-([facility]) [facility] #[id number] Reviewed 11/24/2009 12:00 AM Depo-Medrol 120 Mg Im/[facility][NOTE 2] [id number] Reviewed 12/12/2013 12:00 AM CYTOPATH C/V THIN LAYER Reviewed 12/12/2013 12:00 AM SPECIMEN HANDLING OFFICE-LAB Reviewed 09/18/2014 12:00 AM THER/PROPH/DIAG INJ SC/IM Reviewed 09/18/2014 12:00 AM Decadron, Per 1 Mg [facility]NOTE 2]# [address]-99 Reviewed 09/18/2014 12:00 AM Depo-Medrol, Per 80 Mg [facility][NOTE 2]#7367-5676-61 Reviewed 09/18/2014 12:00 AM Rocephin 1 gram [facility][NOTE 2]#8420-0564-37 Reviewed Results Summary Data and Description Results [...] Counseling Dec 03 2015 10:27AM Encntr for rn obgyn exam (general) (routine) w/o abn findings Dec [...] 2:07PM RUQ pain May 17 2016 2:07PM Payers Insurance Name Company Name Plan Name Plan Number Policy Number Policy Group Number Start Date [facility] [id number] N/A BCBS Bcbs [facility] [id number] N/A BCBS [employer] [facility] [id number] N/A BCBS [employer] [facility] [id number] N/A History of Encounters Visit Date Visit Type Provider 05/17/2016 Office visit Kiran Arce MD 04/30/2016 Office visit KIRAN PRETTY 12/03/2015 Office visit KIRAN PRETTY 06/04/2015 Office visit KIRAN PRETTY 02/24/2015 Office visit KIRAN PRETTY 02/11/2015 Office visit KIRAN PRETTY 11/20/2014 Office visit KIRAN PRETTY 09/18/2014 Office visit 09/18/2014 Office visit KIRAN PRETTY 07/26/2014 Office visit KIRAN PRETTY 12/12/2013 Office visit KIRAN PRETTY 11/06/2013 Office visit KIRAN PRETTY 06/19/2013 Office visit KIRAN PRETTY 06/11/2013 Office visit KIRAN PRETTY 05/14/2013 Office visit KIRAN PRETTY 04/09/2010 Office visit Kiran PRETTY-C 02/23/2010 Office visit Kiran PRETTY-C 11/24/2009 Office visit Kiran PRETTY-C 05/07/2009 Office visit Kiran Mccain PA-C
--- OUTSIDE RECORDS SUMMARY | 2016-11-24 18:22 | XMS REPORT ---
Author Author KIRAN MOODY [facility] Address [address] [place], [place] [address] Care Team Providers Care Agricultural Sales Representative Name Role Phone KIRAN MOODY PCP Unavailable [...] TAKE ONE TABLET BY MOUTH ONCE DAILY Phenergan-Codeine 6.25-10 mg/5 mL oral syrup 07/26/2014 take 5 milliliters by oral route 4 times a day Keflex 500 mg oral capsule 07/26/2014 one PO TID amlodipine 5 mg oral tablet 08/30/2014 TAKE ONE TABLET BY MOUTH EVERY DAY enalapril maleate 20 mg oral tablet 10/18/2014 TAKE ONE TABLET BY MOUTH ONCE DAILY Sprintec (28) 0.25-35 mg-mcg oral tablet 01/07/2015 take 1 tablet by oral route once daily Synthroid 88 mcg oral tablet 02/11/2015 05/12/2015 take 1 tablet (88 mcg) by oral route once daily for 30 days Name Start Date Expiration [...] days 3x2 days 2x2 days 1x2 days Problem List Description Status Onset *No known medical problems Active Vital Signs Date Time BP-Sys(mm[Hg] BP-Amy(mm[Hg]) HR(bpm) RR(rpm) Temp WT HT HC BMI BSA BMI Percentile O2 Sat(%) 02/11/2015 10:31:00 AM 140 mmHg 80 mmHg [...] AM COMPLETE CBC W/AUTO DIFF WBC Returned 02/05/2015 12:00 AM COMPREHEN METABOLIC PANEL Returned 02/05/2015 12:00 AM LIPID PANEL Returned 02/05/2015 12:00 AM ASSAY OF TOTAL THYROXINE Returned 02/05/2015 12:00 AM ASSAY THYROID STIM HORMONE Returned 02/05/2015 12:00 AM ASSAY OF THYROID (T3 OR T4) Returned 06/19/2013 12:00 AM THER/PROPH/DIAG INJ SC/IM Reviewed 06/19/2013 12:00 AM Decadron, Per 12 Mg [facility]# [address]-50 Reviewed 11/24/2009 12:00 AM THER/PROPH/DIAG INJ SC/IM Reviewed 11/24/2009 12:00 AM Decadron Inj.8mg-([facility]) [facility] #[id number] Reviewed 11/24/2009 12:00 AM Depo-Medrol 120 Mg Im/[facility] [id number] Reviewed 12/12/2013 12:00 AM CYTOPATH C/V THIN LAYER Reviewed 12/12/2013 12:00 AM SPECIMEN HANDLING OFFICE-LAB Reviewed 09/18/2014 12:00 AM THER/PROPH/DIAG INJ SC/IM Reviewed 09/18/2014 12:00 AM Decadron, Per 1 Mg [facility]# [address]-86 Reviewed 09/18/2014 12:00 AM Depo-Medrol, Per 80 Mg [facility]#0031[address]-27 Reviewed 09/18/2014 12:00 AM Rocephin 1 gram [facility]#7057-7610-16 Reviewed Results Summary Data and Description Results 02/06/2015 6:20 AM WBC 10.7 RBC 5.03 HGB 13.70 g/dLHCT 41.10 %MCV 82.0 fLMCH 27.20 pgMCHC 33.30 g/dLRDW CV 13.30 %MPV 9.50 fLPLT 247 %NEUT 68.60 %%LYMP 20.10 %%MONO 6.60 %%EOS 4.20 %%BASO 0.50 %#NEUT 7.32 #LYMP 2.15 #MONO 0.71 #EOS 0.45 #BASO 0.05 TRIGLYCERIDES 188.0 mg/dLCHOLESTEROL 208.0 mg/dLHDL 39.0 mg/ dLLDL (CALC) 131.0 mg/dLGLUCOSE 82.0 mg/dLSODIUM 141.0 mmol/LPOTASSIUM 3.60 mmol /LCHLORIDE 110.0 mmol/LCO2 19.0 mmol/LBUN 10.0 mg/dLCREATININE 0.70 mg/dLSGOT/ AST 13.0 IU/LSGPT/ALT 17.0 IU/LALK PHOS 74.0 IU/LTOTAL PROTEIN 6.90 g/dLALBUMIN 3.90 g/dLTOTAL BILI 0.50 mg/dLCALCIUM 8.90 mg/dLeGFR >60 mL/min/1.73mTSH 2.30 uIU/mL History Of Immunizations Not available. History [...] 9:03AM Essential Hypertension Apr 09 2010 11:02AM Nasopharyngitis, Acute (Common Cold) May 14 2013 [...] 2015 1:01PM Hyperlipemia Feb 05 2015 1:01PM Payers Insurance Name Company Name Plan Name Plan Number Policy Number Policy Group Number Start Date [facility] [employer] [id number] N/A [employer]cbs [employer] [facility] [id number] N/A [employer]cbs [employer] [facility] [id number] N/A History of Encounters Visit Date Visit Type Provider 02/11/2015 Office visit IKRAN PRETTY 11/20/2014 Office visit KIRAN PRETTY 09/18/2014 Office visit KIRAN PRETTY 07/26/2014 Office [...]
--- OUTSIDE RECORDS SUMMARY | 2016-11-24 18:23 | XMS REPORT ---
Author Author KIRAN MOODY [facility] Address [address] [place], [place] [address] Care Team Providers Care Vp Director Of Finance Name Role Phone KIRAN MOODY PCP Unavailable [...] Fatigue Active 02/14/2015 Hyperlipidemia, mixed Active 02/14/2015 Vital Signs Date Time BP-Sys(mm[Hg] BP-Amy(mm[Hg]) HR(bpm) [...] 12:00 AM Decadron, Per 12 Mg [facility]# [id number] Reviewed 11/24/2009 12:00 AM THER/PROPH/DIAG INJ SC/IM Reviewed 11/24/2009 12:00 AM Decadron Inj.8mg-([facility]) [facility] #[id number] Reviewed 11/24/2009 12:00 AM Depo-Medrol 120 Mg Im/[facility] [id number] Reviewed 12/12/2013 12:00 AM CYTOPATH C/V THIN LAYER Reviewed 12/12/2013 12:00 AM SPECIMEN HANDLING OFFICE-LAB Reviewed 09/18/2014 12:00 AM THER/PROPH/DIAG INJ SC/IM Reviewed 09/18/2014 12:00 AM Decadron, Per 1 Mg [facility]# [address]-27 Reviewed 09/18/2014 12:00 AM Depo-Medrol, Per 80 Mg [facility]#8117-1763-17 Reviewed 09/18/2014 12:00 AM Rocephin 1 gram [facility]#9104-9988-97 Reviewed Results Summary Data and Description Results [...] Obesity 02/14/2015 Fatigue 02/14/2015 Hyperlipidemia, mixed 02/14/2015 Nasopharyngitis, Acute (Common Cold) May 14 2013 [...] 10:31AM Hyperlipidemia, mixed Feb 11 2015 10:31AM Payers Insurance Name Company Name Plan Name Plan Number Policy Number Policy Group Number Start Date [facility] [employer] [facility] [id number] N/A Bcbs [employer] [facility] [id number] N/A [employer]cbs [employer] [facility] [id number] N/A History of Encounters Visit Date Visit Type Provider 02/11/2015 Office visit KIRAN PRETTY 11/20/2014 Office visit KIRAN PRETTY 09/18/2014 Office visit KIRAN PRETTY 07/26/2014 Office visit KIRAN PRETTY 12/12/2013 Office visit KIRAN PRETTY 11/06/2013 Office visit KIRAN PRETTY 06/19/2013 Office visit KIRAN MOODY PA 06/11/2013 Office visit KIRAN MOODY PA 05/14/2013 Office visit KIRAN MOODY PA 04/09/2010 Office visit Kiran Moody PA-C 02/23/2010 Office visit Kiran PRETTY-C 11/24/2009 Office visit Kiran Moody PA-C 05/07/2009 Office visit Kiran JARRELLC
--- OUTSIDE RECORDS SUMMARY | 2016-11-24 18:23 | XMS REPORT ---
Author Author KIRAN MOODY [facility] Address [address] [place], [place] [address] Care Team Providers Care Wood Science Professor Name Role Phone KIRAN MOODY PCP Unavailable Allergies and Adverse Reactions Name Reaction Notes Albuterol Plan of Treatment Planned Activity Comments Planned Date Planned Time Plan/Goal ASSAY OF TOTAL THYROXINE 06/04/2015 12:00 AM ASSAY THYROID STIM HORMONE 06/04/2015 12:00 AM ASSAY OF THYROID (T3 OR T4) 06/04/2015 12:00 AM Medications Active Name Start Date [...] 1 tablet by oral route once daily enalapril maleate 20 mg oral tablet 03/03/2015 TAKE ONE TABLET BY MOUTH ONCE DAILY promethazine-codeine 6.25-10 mg/5 mL oral syrup 03/04/2015 take 5 milliliters by oral route every 4-6 hours as needed, not to exceed 30 mL in 24 hours fluticasone 50 mcg/actuation nasal spray,suspension 03/04/2015 inhale 1 spray (50 mcg) in each nostril by intranasal route 2 times per day Synthroid 88 mcg oral tablet 05/15/2015 take 1 tablet (88 mcg) by oral [...] days 3x2 days 2x2 days 1x2 days Synthroid 88 mcg oral tablet 02/11/2015 05/12/2015 take 1 tablet (88 mcg) by oral route once daily for 30 days Problem List Description Status Onset *No known medical problems Active Essential Hypertension Active 02/14/2015 Hypothyroidism, Acquired Active 02/14/2015 Obesity Active 02/14/2015 Fatigue Active 02/14/2015 Hyperlipidemia, mixed Active 02/14/2015 Vital Signs Date Time BP-Sys(mm[Hg] BP-Amy(mm[Hg]) HR(bpm) RR(rpm) Temp WT HT HC BMI BSA BMI Percentile O2 Sat(%) 06/04/2015 11:34:00 AM 142 mmHg 70 mmHg [...] ASSAY OF THYROID (T3 OR T4) Returned 02/24/2015 12:00 AM Decadron, Per [address] [facility]# [address]-63 Reviewed 02/24/2015 12:00 AM Depo-Medrol, Per [address] [facility]#5990-3616-07 Reviewed 06/19/2013 12:00 AM THER/PROPH/DIAG INJ SC/IM Reviewed 06/19/2013 12:00 AM Decadron, Per [address] [facility]# [address]-66 Reviewed 11/24/2009 12:00 AM THER/PROPH/DIAG INJ SC/IM Reviewed 11/24/2009 12:00 AM Decadron Inj.8mg-([facility]) [facility] #[id number] Reviewed 11/24/2009 12:00 AM Depo-Medrol 120 Mg Im/[facility] [id number] Reviewed 12/12/2013 12:00 AM CYTOPATH C/V THIN LAYER Reviewed 12/12/2013 12:00 AM SPECIMEN HANDLING OFFICE-LAB Reviewed 09/18/2014 12:00 AM THER/PROPH/DIAG INJ SC/IM Reviewed 09/18/2014 12:00 AM Decadron, Per [address] [facility]# [address]-49 Reviewed 09/18/2014 12:00 AM Depo-Medrol, Per [address] [facility]#5125-7675-22 Reviewed 09/18/2014 12:00 AM Rocephin [address] [facility]#4005-0820-53 Reviewed Results Summary Data and Description Results [...] 2015 1:40PM Hypothyroid Jun 04 2015 1:28PM Payers Insurance Name Company Name Plan Name Plan Number Policy Number Policy Group Number Start Date [id number] N/A [id number] N/A BCBS Bcbs [facility] [id number] N/A History of Encounters Visit Date Visit Type Provider 06/04/2015 Office visit KIRAN PRETTY 02/24/2015 Office [...]
--- OUTSIDE RECORDS SUMMARY | 2016-11-24 18:24 | XMS REPORT ---
Author Author Kiran Arce [facility] Address [address] [place], [place] [address] Care Team Providers Care Title Lawyer Name Role Phone Kiran Arce PCP Unavailable Allergies and Adverse Reactions Name Reaction Notes Albuterol Plan of Treatment Planned Activity Comments Planned Date Planned Time Plan/Goal CMP 05/17/2016 12:00 AM CBC with Diff, automated 05/17/2016 12:00 AM Medications Active Name Start [...] ONCE DAILY omeprazole 40 mg oral capsule,delayed release(/EC) 05/24/2016 08/22/2016 take 1 capsule (40 mg) [...] HC BMI BSA BMI Percentile O2 Sat(%) 05/24/2016 3:12:00 PM 144 mmHg 98 mmHg [...] 02/24/2015 12:00 AM Decadron, Per 1 Mg [facility]# [address]-12 Reviewed 02/24/2015 12:00 AM Depo-Medrol, Per 80 Mg [facility]#3623-0028-99 Reviewed 06/04/2015 12:00 AM ASSAY OF TOTAL THYROXINE Reviewed 06/04/2015 12:00 AM ASSAY THYROID STIM HORMONE Reviewed 06/04/2015 12:00 AM ASSAY OF THYROID (T3 OR T4) Reviewed 06/05/2015 12:00 AM Decadron, Per 1 Mg [facility]# [address]-54 Reviewed 06/05/2015 12:00 AM Depo-Medrol, Per 80 Mg [facility]#2772-8720-33 Reviewed 06/05/2015 12:00 AM Rocephin 1 gram [facility]#2039-6158-25 Reviewed 04/23/2016 12:00 AM COMPLETE CBC W/AUTO [...] 06/19/2013 12:00 AM Decadron, Per 12 Mg [facility]# [address]-10 Reviewed 11/24/2009 12:00 AM THER/PROPH/DIAG INJ SC/IM Reviewed 11/24/2009 12:00 AM Decadron Inj.8mg-([facility]) [facility] #[id number] Reviewed 11/24/2009 12:00 AM Depo-Medrol 120 Mg Im/[facility] [phone] Reviewed 12/12/2013 12:00 AM CYTOPATH C/V THIN LAYER Reviewed 12/12/2013 12:00 AM SPECIMEN HANDLING OFFICE-LAB Reviewed 09/18/2014 12:00 AM THER/PROPH/DIAG INJ SC/IM Reviewed 09/18/2014 12:00 AM Decadron, Per 1 Mg [facility]# [address]-09 Reviewed 09/18/2014 12:00 AM Depo-Medrol, Per 80 Mg [facility]#4708-7733-92 Reviewed 09/18/2014 12:00 AM Rocephin 1 gram [facility]#0831-6459-05 Reviewed Results Summary Data and Description Results [...] Counseling Dec 03 2015 10:27AM Encntr for production hand exam (general) (routine) w/o abn findings Dec [...] Abdominal pain, RUQ May 24 2016 3:12PM Payers Insurance Name Company Name Plan Name Plan Number Policy Number Policy Group Number Start Date [facility] [id number] N/A BCBS Bcbs [facility] [id number] N/A BCBS [employer] [facility] [id number] N/A BCBS [employer]cbs [facility] [id number] N/A History of Encounters Visit Date Visit Type Provider 05/24/2016 Office visit Kiran Arec MD 05/17/2016 Office visit Kiran Arce MD [...] visit KIRAN PRETTY 04/09/2010 Office visit Kiran JARRELLC 02/23/2010 Office visit Kiran JARRELLC 11/24/2009 Office visit Kiran JARRELLC 05/07/2009 Office visit Kiran Mccain PA-C
--- OUTSIDE RECORDS SUMMARY | 2016-11-24 18:24 | XMS REPORT | CCD ---
Author Author JORGE DAMON Organization Unknown Address [address] [place] [address] Care Team Providers Care Mooner Name Role Phone CONTI, MADHU DO Attphys CONTI, MADHU DO Prisurg Allergies Unknown or Not Available. Active Medications Unknown or Not Available. Problems Problem Code Start Date Resolved Date Status LABOR AND DELIVERY INDICATION FOR CARE OR INTERVENTION 68578 Active VAGINAL DELIVERY 650 08/29/2011 Active Procedures Procedure Code Procedure Type Date LIPASE 71951892 SNOMED CT 05/03/2016 CBC W/ AUTO DIFF (RFLX MAN DIFF IF IND) 4825416 SNOMED CT 05/03/2016 COMPREHENSIVE METABOLIC PANEL 364569163 SNOMED CT 2016 ^CBC W/AUTO DIFF [id number] SNOMED CT 05/03/2016 Results COMPREHENSIVE METABOLIC PANEL - Collect Date/Time: 05/03/2016 10:30 Test Name Code Test Result Test Units Test Ref Range GLUCOSE 2345-7 93 MG/DL L=70 H=100 SODIUM 2951-2 140 MEQ/L L=135 H=148 POTASSIUM 2823-3 3.3 MEQ/L L=3.5 H=5.3 CHLORIDE 2075-0 110 MEQ/L L=96 H=110 CO2 2028-9 20 MEQ/L L=22 H=29 BUN 3094-0 12 MG/DL L=8 H=22 CREATININE 2160-0 0.7 MG/DL L=0.6 H=1.6 SGOT/AST 1920-8 11 IU/L L=10 H=40 SGPT/ALT 1742-6 11 IU/L L=8 H=54 ALK PHOS 6768-6 91 IU/L L=35 H=115 TOTAL PROTEIN 2885-2 7.2 G/DL L=5.5 H=8.5 ALBUMIN 1751-7 4.0 G/DL L=3.1 H=5.4 TOTAL BILI 1975-2 0.8 MG/DL L=0.0 H=1.5 CALCIUM 42892-1 9.0 MG/DL L=8.2 H=10.6 AGE 31 yrs GFR NonAA 99 GFR AA 120 eGFR >60 N/A eGFR AA* >60 N/A LIPASE - Collect Date/Time: 05/03/2016 10:30 Test Name Code Test Result Test Units Test Ref Range LIPASE 3040-3 32 U/L L=8 H=78 CBC W/ AUTO DIFF (RFLX MAN DIFF IF IND) - Collect Date/Time: 05/03/2016 10:30 Test Name Code Test Result Test Units Test Ref Range WBC 05356-9 11.1 TH/CMM L=4.5 H=10.8 RBC 789-8 5.29 ML/CMM L=4.20 H=5.40 HGB 718-7 14.1 G/DL L=12.0 H=16.0 HCT 4544-3 43.0 % L=37.0 H=47.0 MCV 81 FL L=81 H=99 MCH 26.7 PG L=27.0 H=33.0 MCHC 32.8 G/DL L=31.0 H=36.0 RDW SD 37 FL L=36 H=50 RDW CV 12.5 % L=0.0 H=14.8 MPV 9.0 FL L=9.3 H=12.5 PLT 777-3 270 TH/CMM L=130 H=440 NRBC# 0.00 TH/CMM L=0.00 H=0.00 NRBC% 0.0 /100WBC L=0.0 H=2.0 %NEUT 75.0 % %LYMP 12.0 % %MONO 7.6 % %EOS 4.7 % %BASO 0.4 % #NEUT 8.34 TH/CMM L=2.10 H=8.20 #LYMP 1.33 TH/CMM L=0.90 H=5.20 #MONO 0.85 TH/CMM L=0.16 H=1.00 #EOS 0.52 TH/CMM L=0.00 H=0.80 #BASO 0.05 TH/CMM L=0.00 H=0.20 MANUAL DIFF NOT IND N/A Function Status Unknown or Not Available. History of Immunizations Unknown or Not Available. Plan of Treatment Unknown or Not Available. Social History Smoking Status Code Start Date End Date Never smoker [id number] Vital Signs Unknown or Not Available. Function Status Unknown or Not Available. Goals Unknown or Not Available. ASSESSMENTS Unknown or Not Available. Health Concerns Section Unknown or Not Available.
--- OUTSIDE RECORDS SUMMARY | 2016-11-24 18:25 | XMS REPORT ---
Author Author KIRAN MOODY [facility] Address [address] [place], [place] [address] Care Team Providers Care Facility Sales And Admin Name Role Phone KIRAN MOODY PCP Unavailable [...] HC BMI BSA BMI Percentile O2 Sat(%) 04/30/2016 8:32:00 AM 132 mmHg 85 mmHg [...] 02/24/2015 12:00 AM Decadron, Per [address] [facility]# [address]-91 Reviewed 02/24/2015 12:00 AM Depo-Medrol, Per [address] [facility]#4931-8148-73 Reviewed 06/04/2015 12:00 AM ASSAY OF TOTAL THYROXINE Reviewed 06/04/2015 12:00 AM ASSAY THYROID STIM HORMONE Reviewed 06/04/2015 12:00 AM ASSAY OF THYROID (T3 OR T4) Reviewed 06/05/2015 12:00 AM Decadron, Per [address] [facility]# [address]-13 Reviewed 06/05/2015 12:00 AM Depo-Medrol, Per [address] [facility]#1605-7529-08 Reviewed 06/05/2015 12:00 AM Rocephin [address] [facility]#1478-2003-15 Reviewed 04/23/2016 12:00 AM COMPLETE CBC W/AUTO DIFF WBC Returned 04/23/2016 12:00 AM COMPREHEN METABOLIC PANEL Returned 04/23/2016 12:00 AM LIPID PANEL Returned 04/23/2016 12:00 AM ASSAY OF TOTAL THYROXINE Returned 04/23/2016 12:00 AM ASSAY THYROID STIM HORMONE Returned 04/23/2016 12:00 AM ASSAY OF THYROID (T3 OR T4) Returned 06/19/2013 12:00 AM THER/PROPH/DIAG INJ SC/IM Reviewed 06/19/2013 12:00 AM Decadron, Per [address] [facility]# [address]-10 Reviewed 11/24/2009 12:00 AM THER/PROPH/DIAG INJ SC/IM Reviewed 11/24/2009 12:00 AM Decadron Inj.8mg-([facility]) [facility] #[id number] Reviewed 11/24/2009 12:00 AM Depo-Medrol 120 Mg Im/[facility] Chase [facility] [id number] Reviewed 12/12/2013 12:00 AM CYTOPATH C/V THIN LAYER Reviewed 12/12/2013 12:00 AM SPECIMEN HANDLING OFFICE-LAB Reviewed 09/18/2014 12:00 AM THER/PROPH/DIAG INJ SC/IM Reviewed 09/18/2014 12:00 AM Decadron, Per [address] [facility]# [address]-12 Reviewed 09/18/2014 12:00 AM Depo-Medrol, Per [address] [facility]#0414-7553-08 Reviewed 09/18/2014 12:00 AM Rocephin [address] 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) (routine) w/o abn findings Dec [...] Stress at home Apr 30 2016 8:32AM Payers Insurance Name Company Name Plan Name Plan Number Policy Number Policy Group Number Start Date [facility] [id number] N/A BCBS Bcbs [facility] [id number] N/A BCBS Bcbs [facility] [id number] N/A BCBS Bcbs [facility] [id number] N/A History of Encounters Visit Date Visit Type Provider 04/30/2016 Office visit KIRAN MOODY PA 12/03/2015 Office visit KIRAN MOODY PA 06/04/2015 Office visit KIRAN MOODY PA 02/24/2015 Office visit KIRAN MOODY PA 02/11/2015 Office visit KIRAN MOODY PA 11/20/2014 Office visit KIRAN MOODY PA 09/18/2014 Office visit 09/18/2014 Office visit KIRAN [...]
--- OUTSIDE RECORDS SUMMARY | 2016-11-24 18:25 | XMS REPORT ---
Author Author Kiran Arce [facility] Address [address] [place], [place] [address] Care Team Providers Care Load Dispatcher Name Role Phone Kiran Arce PCP Unavailable [...] DAILY Sprintec (28) 0.25-35 mg-mcg oral tablet 06/30/2016 TAKE ONE TABLET BY MOUTH ONCE DAILY [...] oral route once daily for 4 days omeprazole 40 mg oral capsule,delayed release(DR/EC) 05/24/2016 08/22/2016 take 1 capsule (40 mg) by oral route once daily before a meal for 30 days Zithromax Z-Denver 250 mg oral tablet 06/08/2016 06/13/2016 take 2 tablets (500 mg ) by oral route once daily for 1 [...] 2 days Problem List Description Status Onset Essential hypertension Active 02/14/2015 Hypothyroidism, Acquired Active 02/14/2015 Obesity Active 02/14/2015 Fatigue Active 02/14/2015 Hyperlipidemia, Mixed Active 02/14/2015 Depressive Disorder Active 12/04/2015 Stress at home Active 12/04/2015 Vital Signs Date Time BP-Sys(mm[Hg] BP-Amy(mm[Hg]) HR(bpm) RR(rpm) Temp WT HT HC BMI BSA BMI Percentile O2 Sat(%) 07/05/2016 1:50:00 PM 140 mmHg 98 mmHg 85 bpm 20 rpm 96.3 F 251 lbs 65 in 41.77 kg/m2 2.29 m2 99 % 06/09/2016 2:36:00 PM 152 mmHg 94 mmHg 91 bpm 20 rpm 96.4 F 250 lbs 65 in 41.6018 kg/m 2.2805 m 99 % 06/08/2016 9:28:00 AM 142 mmHg 90 mmHg 80 bpm 16 rpm 98.2 F 247 lbs 65 in 41.10 kg/m2 2.27 m2 97 % 05/24/2016 3:12:00 PM 144 mmHg 98 mmHg 72 bpm 20 rpm 96 F 247 lbs 65 in 41.1025 kg/m 2.2668 m 98 % 05/17/2016 2:07:00 PM 136 mmHg [...] AM Decadron, Per 1 Mg [facility]# [address]-62 Reviewed 02/24/2015 12:00 AM Depo-Medrol, Per 80 Mg [facility]#4001-8113-72 Reviewed 06/04/2015 12:00 AM ASSAY OF TOTAL THYROXINE Reviewed 06/04/2015 12:00 AM ASSAY THYROID STIM HORMONE Reviewed 06/04/2015 12:00 AM ASSAY OF THYROID (T3 OR T4) Reviewed 06/05/2015 12:00 AM Decadron, Per 1 Mg [facility]# [address]-56 Reviewed 06/05/2015 12:00 AM Depo-Medrol, Per 80 Mg [facility]#0436-4830-55 Reviewed 06/05/2015 12:00 AM Rocephin 1 gram [facility]#7094-4735-82 Reviewed 04/23/2016 12:00 AM COMPLETE CBC W/AUTO DIFF WBC Returned 04/23/2016 12:00 AM COMPREHEN METABOLIC PANEL Returned 04/23/2016 12:00 AM LIPID PANEL Returned 04/23/2016 12:00 AM ASSAY OF TOTAL THYROXINE Returned 04/23/2016 12:00 AM ASSAY THYROID STIM HORMONE Returned 04/23/2016 12:00 AM ASSAY OF THYROID (T3 OR T4) Returned 05/17/2016 12:00 AM HEPATOBILIARY SYSTEM IMAGING Returned 06/09/2016 12:00 AM CHEST X-RAY 2VW FRONTAL&LATL Returned 06/09/2016 12:00 AM ELECTROCARDIOGRAM TRACING Returned 06/09/2016 12:00 AM ECG MONIT/REPRT UP TO 48 HRS Returned 06/08/2016 12:00 AM THER/PROPH/DIAG INJ SC/IM Reviewed 06/08/2016 12:00 AM Decadron 8mg Injection Reviewed 06/08/2016 12:00 AM Depo-Medrol 80mg Injection Reviewed 06/08/2016 12:00 AM Rocephin 1 gram Injection Reviewed 06/19/2013 12:00 AM THER/PROPH/DIAG INJ SC/IM Reviewed 06/19/2013 12:00 AM Decadron, Per 12 Mg [facility]# [address]-34 Reviewed 11/24/2009 12:00 AM THER/PROPH/DIAG INJ SC/IM Reviewed 11/24/2009 12:00 AM Decadron Inj.8mg-([facility]) [facility] #[id number] Reviewed 11/24/2009 12:00 AM Depo-Medrol 120 Mg Im/[facility] [id number] Reviewed 12/12/2013 12:00 AM CYTOPATH C/V THIN LAYER Reviewed 12/12/2013 12:00 AM SPECIMEN HANDLING OFFICE-LAB Reviewed 09/18/2014 12:00 AM THER/PROPH/DIAG INJ SC/IM Reviewed 09/18/2014 12:00 AM Decadron, Per 1 Mg [facility]# [address]-85 Reviewed 09/18/2014 12:00 AM Depo-Medrol, Per 80 Mg [facility]#1664-5958-29 Reviewed 09/18/2014 12:00 AM Rocephin 1 gram [facility]#4035-9133-07 Reviewed Results Summary Date and Description Results 09/04/2009 7:35 PM TEST [...] 137.0 mg/dLFREE T4 0.79 TSH 0.540 uIU/mL 06/25/2016 8:45 AM TEST UR NEGATIVE History Of Immunizations Not available. 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) (routine) w/o abn findings Dec [...] 2016 3:05PM Cough Jun 09 2016 3:05PM Chronic Cholecystitis Jun 09 2016 2:36PM Biliary Dyskinesia Jun 09 2016 2:36PM Mild Acute Cough Jun 08 2016 9:29AM Moderate Acute Chest congestion Jun 08 2016 9:29AM Upper respiratory tract infection, unspecified type Jun 08 2016 9:29AM Encounter for examination following surgery Jul 05 2016 1:50PM Payers Insurance Name Company Name Plan Name Plan Number Policy Number Policy Group Number Start Date [facility] [id number] N/A BCBS Bcbs [facility] [id number] N/A BCBS [facility] [place] [id number] N/A BCBS [facility] [id number] N/A History of Encounters Visit Date Visit Type Provider 07/05/2016 Office visit Kiran Arce MD 06/25/2016 Surgery Kiran Arce MD 06/09/2016 Office visit Kiran Arce MD 06/09/2016 Hospital García Guillen MD 06/08/2016 Office visit KIRAN PRETTY 05/24/2016 [...] visit Kiran PRETTY-C 05/07/2009 Office visit Kiran JARRELLC
--- OUTSIDE RECORDS SUMMARY | 2016-11-24 18:26 | XMS REPORT ---
Author Author [facility] Organization [facility] Address [address] [place], [place] [address] Care Team Providers Care Certified Travel Counselor Name Role Phone PCP Unavailable Allergies and Adverse Reactions Name Reaction Notes Albuterol Plan of Treatment Not available. Medications Active Name Start Date Estimated Completion Date SIG Comments enalapril maleate oral tablet 20 mg 10/25/2013 take 1 tablet (20 mg) by oral route once daily Sprintec (28) oral tablet 0.25-35 mg-mcg 12/12/2013 take 1 tablet by oral route once daily enalapril maleate oral tablet 20 mg 04/01/2014 TAKE ONE TABLET BY MOUTH EVERY DAY amlodipine oral tablet 5 mg 05/27/2014 TAKE ONE TABLET BY MOUTH EVERY DAY enalapril maleate oral tablet 20 mg 07/11/2014 TAKE ONE TABLET BY MOUTH ONCE DAILY Phenergan-Codeine Oral Syrup 6.25-10 mg/5 mL 07/26/2014 take 5 milliliters by oral route 4 times a day Keflex Oral Capsule 500 mg 07/26/2014 one PO TID amlodipine oral tablet 5 mg 08/30/2014 TAKE ONE TABLET BY MOUTH EVERY DAY Name Start Date Expiration Date SIG Comments Reglan Oral Tablet 10 mg 05/07/2009 1 tablet tid Cipro Oral Tablet 500 mg 11/24/2009 take 1 tablet (500 mg) by oral route every 12 hours Benicar HCT Oral Tablet 20-12.5 mg 08/21/2010 take 1 tablet by oral route once daily Zithromax Z-Denver Oral Tablet 250 mg 05/15/2013 take 2 tablets (500 mg) by oral route once daily for 1 day then 1 tablet (250 mg) by oral route once daily for 4 days Phenergan-Codeine Oral Syrup 6.25-10 mg/5 mL 07/26/2013 take 5 milliliters by oral route 4 times a day Zithromax Z-Denver Oral Tablet 250 mg 07/26/2013 take 2 tablets (500 mg) by oral route once daily for 1 day then 1 tablet (250 mg) by oral route once daily for 4 days Bactrim DS oral tablet 800-160 mg 12/12/2013 12/22/2013 take 1 tablet by oral route 2 times a day for 10 days prednisone oral tablet 20 mg 12/12/2013 12/20/2013 4x2 days 3x2 days 2x2 days 1x2 days Problem List Description Status Onset *No known medical problems Active Vital Signs Date Time BP-Sys(mm[Hg] BP-Amy(mm[Hg]) HR(bpm) RR(rpm) Temp WT HT HC BMI BSA BMI Percentile O2 Sat(%) 09/18/2014 11:30:00 AM 140 mmHg 85 mmHg [...] of Procedures Date Ordered Description Order Status 06/19/2013 12:00 AM THER/PROPH/DIAG INJ SC/IM Reviewed 11/24/2009 12:00 AM THER/PROPH/DIAG INJ SC/IM Reviewed 12/12/2013 12:00 AM CYTOPATH C/V THIN LAYER Reviewed 12/12/2013 12:00 AM SPECIMEN HANDLING OFFICE-LAB Reviewed 09/18/2014 12:00 AM THER/PROPH/DIAG INJ SC/IM Reviewed Results Summary Not available. History Of Immunizations Not available. History of [...] 11:31AM Post-nasal drainage Sep 18 2014 11:31AM Payers Insurance Name Company Name Plan Name Plan Number Policy Number Policy Group Number Start Date [facility] [place] [id number] N/A [facility] [place] [id number] N/A [facility] [id number] N/A History of Encounters Visit Date Visit Type Provider 09/18/2014 Office visit KIRAN PRETTY 07/26/2014 Office visit KIRAN PRETTY 12/12/2013 Office visit KIRAN PRETTY 11/06/2013 Office visit KIRAN PRETTY 06/19/2013 Office visit KIRAN PRETTY 06/11/2013 Office visit KIRAN PRETTY 05/14/2013 Office visit KIRAN PRETTY 04/09/2010 Office visit Kiran Mccain PA-C 02/23/2010 Office visit Kiran Mccain PA-C 11/24/2009 Office visit Kiran Mccain PA-C 05/07/2009 Office visit Kiran Mccain PA-C
--- OUTSIDE RECORDS SUMMARY | 2016-11-24 18:26 | XMS REPORT ---
Author Author KIRAN MOODY [facility] Address [address] [place], [place] [address] Care Team Providers Care Senior Quality Methods Specialist Name Role Phone KIRAN MOODY PCP Unavailable [...] oral route once daily for 30 days enalapril maleate 20 mg oral tablet 03/03/2015 TAKE ONE TABLET BY MOUTH ONCE DAILY promethazine-codeine 6.25-10 mg/5 mL oral syrup 03/04/2015 take 5 milliliters by oral route every 4-6 hours as needed, not to exceed 30 mL in 24 hours fluticasone 50 mcg/actuation nasal spray,suspension 03/04/2015 inhale 1 spray (50 mcg) in each nostril by intranasal route 2 times per day Name Start Date Expiration Date SIG Comments [...] HC BMI BSA BMI Percentile O2 Sat(%) 02/24/2015 1:38:00 PM 140 mmHg 70 mmHg [...] 12:00 AM Decadron, Per [address] [facility]# [address]-31 Reviewed 11/24/2009 12:00 AM THER/PROPH/DIAG INJ SC/IM Reviewed 11/24/2009 12:00 AM Decadron Inj.8mg-([facility]) [facility] #[id number] Reviewed 11/24/2009 12:00 AM Depo-Medrol 120 Mg Im/[facility] Chase [facility] [id number] Reviewed 12/12/2013 12:00 AM CYTOPATH C/V THIN LAYER Reviewed 12/12/2013 12:00 AM SPECIMEN HANDLING OFFICE-LAB Reviewed 09/18/2014 12:00 AM THER/PROPH/DIAG INJ SC/IM Reviewed 09/18/2014 12:00 AM Decadron, Per [address] [facility]# [address]-26 Reviewed 09/18/2014 12:00 AM Depo-Medrol, Per [address] [facility]#2095-6359-27 Reviewed 09/18/2014 12:00 AM Rocephin [address] [facility]#1901-8174-56 Reviewed Results Summary Data and Description Results [...] Acute Post-nasal drainage Feb 24 2015 1:40PM Payers Insurance Name Company Name Plan Name Plan Number Policy Number Policy Group Number Start Date [facility]bs [facility] [id number] N/A Bcbs [facility] [id number] N/A Bcbs [facility] [id number] N/A History of Encounters Visit Date Visit Type Provider 02/24/2015 Office visit KIRAN PRETTY 02/11/2015 Office visit KIRAN PRETTY 11/20/2014 Office visit KIRAN PRETTY 09/18/2014 Office visit KIRAN PRETTY 07/26/2014 Office visit KIRAN PRETTY 12/12/2013 Office visit KIRAN PRETTY 11/06/2013 Office visit KIRAN PRETTY 06/19/2013 Office visit KIRAN PRETTY 06/11/2013 Office visit KIRAN PRETTY 05/14/2013 Office visit KIRAN PRETTY 04/09/2010 Office visit Krian Moody PA-C 02/23/2010 Office visit Kiran Moody PA-C 11/24/2009 Office visit Kiran Moody PA-C 05/07/2009 Office visit Kiran Moody PA-C
--- OUTSIDE RECORDS SUMMARY | 2016-11-24 18:27 | XMS REPORT ---
Author Author KIRAN MOODY [facility] Address [address] [place], [place] [address] Care Team Providers Care Targeteer Name Role Phone KIRAN MOODY PCP Unavailable KIRAN MOODY PreferredProvider Unavailable Allergies and Adverse Reactions Name Reaction [...] ONE TABLET BY MOUTH ONCE DAILY amlodipine 10 mg oral tablet 10/18/2016 03/17/2017 take 1 tablet (10 mg) by oral route once daily for 30 days enalapril maleate 20 mg oral tablet 10/18/2016 11/17/2016 take 2 tablets (40 mg) by oral route once daily for [...] Active 12/04/2015 Stress at home Active 12/04/2015 Elevated blood pressure reading with diagnosis of hypertension Active 2016 Syncope, unspecified syncope type Active 10/20/2016 Morbid obesity due to excess calories Active 10/20/2016 Vital Signs Date Time BP-Sys(mm[Hg] BP-Amy(mm[Hg]) HR(bpm) RR(rpm) Temp WT HT HC BMI BSA BMI Percentile O2 Sat(%) 10/18/2016 10:58:00 AM 150 mmHg 100 mmHg 73 bpm 16 rpm 97.8 F 252 lbs 65 in 41.93 kg/m2 2.29 m2 98 % 07/05/2016 1:50:00 PM 140 mmHg 98 mmHg 85 bpm 20 rpm 96.3 F 251 lbs 65 in 41.7682 kg/m 2.285 m 99 % 06/09/2016 2:36:00 PM 152 mmHg [...] 02/24/2015 12:00 AM Decadron, Per 1 Mg [facility]# [address]-45 Reviewed 02/24/2015 12:00 AM Depo-Medrol, Per 80 Mg [facility]#5363-5237-80 Reviewed 06/04/2015 12:00 AM ASSAY OF TOTAL THYROXINE Reviewed 06/04/2015 12:00 AM ASSAY THYROID STIM HORMONE Reviewed 06/04/2015 12:00 AM ASSAY OF THYROID (T3 OR T4) Reviewed 06/05/2015 12:00 AM Decadron, Per 1 Mg [facility]# [address]-24 Reviewed 06/05/2015 12:00 AM Depo-Medrol, Per 80 Mg [facility]#0323-06[address]-79 Reviewed 06/05/2015 12:00 AM Rocephin 1 gram [facility]#9914-7689-30 Reviewed 04/23/2016 12:00 AM COMPLETE CBC W/AUTO [...] 06/19/2013 12:00 AM Decadron, Per 12 Mg [facility]# [address]-03 Reviewed 11/24/2009 12:00 AM THER/PROPH/DIAG INJ SC/IM Reviewed 11/24/2009 12:00 AM Decadron Inj.8mg-([facility]) [facility] #[id number] Reviewed 11/24/2009 12:00 AM Depo-Medrol 120 Mg Im/[facility] [id number] Reviewed 12/12/2013 12:00 AM CYTOPATH C/V THIN LAYER Reviewed 12/12/2013 12:00 AM SPECIMEN HANDLING OFFICE-LAB Reviewed 09/18/2014 12:00 AM THER/PROPH/DIAG INJ SC/IM Reviewed 09/18/2014 12:00 AM Decadron, Per 1 Mg [facility]# [address]-75 Reviewed 09/18/2014 12:00 AM Depo-Medrol, Per 80 Mg [facility]#0625-9539-60 Reviewed 09/18/2014 12:00 AM Rocephin 1 gram [facility]#4225-8978-49 Reviewed Results Summary Date and Description Results [...] Depressive Disorder 12/04/2015 Stress at home 12/04/2015 Elevated blood pressure reading with diagnosis of hypertension 10/20/2016 Syncope, unspecified syncope type 10/20/2016 Morbid obesity due to excess calories 10/20/2016 Nasopharyngitis, Acute (Common Cold) May 14 2013 [...] Counseling Dec 03 2015 10:27AM 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) w/o abn findings Dec [...] examination following surgery Jul 05 2016 1:50PM Morbid obesity due to excess calories Oct 18 2016 10:59AM Essential hypertension Oct 18 2016 10:59AM Syncope, unspecified syncope type Oct 18 2016 10:59AM Elevated blood pressure reading with diagnosis of hypertension Oct 18 2016 10: 59AM Payers Insurance Name Company Name Plan Name Plan Number Policy Number Policy Group Number Start Date [facility] [id number] N/A BCBS [facility] [id number] N/A BCBS [facility] [id number] N/A BCBS [employer] [facility] [id number] N/A History of Encounters Visit Date Visit Type Provider 10/18/2016 Office visit KIRAN PRETTY 07/05/2016 Office visit Kiran Arce MD 06/25/2016 [...] PA 09/18/2014 Office visit 09/18/2014 Office visit KIARN MOODY PA 07/26/2014 Office visit KIRAN MOODY [...]
--- OUTSIDE RECORDS SUMMARY | 2016-11-24 18:27 | XMS REPORT ---
Author Author KIRAN MOODY [facility] Address [address] [place], [place] [address] Care Team Providers Care Auricular Therapist Name Role Phone KIRAN MOODY PCP Unavailable [...] TAKE ONE TABLET BY MOUTH ONCE DAILY fluticasone 50 mcg/actuation nasal spray,suspension 03/04/2015 inhale 1 spray (50 mcg) in each nostril by intranasal route 2 times per day Synthroid 88 mcg oral tablet 05/15/2015 take 1 tablet (88 mcg) by oral route once daily for 30 days Keflex 500 mg oral capsule 06/05/2015 one PO TID promethazine-codeine 6.25-10 mg/5 mL oral syrup 06/05/2015 take 5 milliliters by oral route every 4-6 hours as needed, not to exceed 30 mL in 24 hours Name Start Date Expiration Date SIG Comments [...] 02/24/2015 12:00 AM Decadron, Per 1 Mg [facility]# [address]-38 Reviewed 02/24/2015 12:00 AM Depo-Medrol, Per 80 Mg [facility]#3268-3838-02 Reviewed 06/04/2015 12:00 AM ASSAY OF TOTAL THYROXINE Returned 06/04/2015 12:00 AM ASSAY THYROID STIM HORMONE Returned 06/04/2015 12:00 AM ASSAY OF THYROID (T3 OR T4) Returned 06/19/2013 12:00 AM THER/PROPH/DIAG INJ SC/IM Reviewed 06/19/2013 12:00 AM Decadron, Per 12 Mg [facility]# [address]-53 Reviewed 11/24/2009 12:00 AM THER/PROPH/DIAG INJ SC/IM Reviewed 11/24/2009 12:00 AM Decadron Inj.8mg-([facility]) [facility] #[id number] Reviewed 11/24/2009 12:00 AM Depo-Medrol 120 Mg Im/[facility] [id number] Reviewed 12/12/2013 12:00 AM CYTOPATH C/V THIN LAYER Reviewed 12/12/2013 12:00 AM SPECIMEN HANDLING OFFICE-LAB Reviewed 09/18/2014 12:00 AM THER/PROPH/DIAG INJ SC/IM Reviewed 09/18/2014 12:00 AM Decadron, Per 1 Mg [facility]# [address]-77 Reviewed 09/18/2014 12:00 AM Depo-Medrol, Per 80 Mg [facility]#0837-2629-41 Reviewed 09/18/2014 12:00 AM Rocephin 1 gram [facility]#1879-3188-36 Reviewed Results Summary Data and Description Results [...] mg/dLCALCIUM 8.90 mg/dLeGFR >60 mL/min/1.73mTSH 2.30 uIU/mL 06/04/2015 4:22 PM TSH 0.280 uIU/mL History Of Immunizations Not available. History [...] And Chest Symptoms Jun 04 2015 11:34AM Payers Insurance Name Company Name Plan Name Plan Number Policy Number Policy Group Number Start Date [employer] [facility] [id number] N/A BCBS [employer] [facility] [id number] N/A BCBS [employer] [facility] [id number] N/A History of Encounters Visit Date Visit [...] visit KIRAN PRETTY 05/14/2013 Office visit KIRAN PRTETY 04/09/2010 Office visit Kiran Moody PA-C 02/23/2010 Office visit Kiran Moody PA-C 11/24/2009 Office visit Kiran Moody PA-C 05/07/2009 Office visit Kiran Moody PA-C
--- OUTSIDE RECORDS SUMMARY | 2016-11-24 18:28 | XMS REPORT ---
Author Author [facility] Organization [facility] Address [address] [place], [place] [address] Care Team Providers Care Forest Practices Field Coordinator Name Role Phone PCP Unavailable Allergies and [...] DAY enalapril maleate oral tablet 20 mg 10/18/2014 TAKE ONE TABLET BY MOUTH ONCE DAILY Sprintec (28) oral tablet 0.25-35 mg-mcg 10/29/2014 take 1 tablet by oral route once daily Name Start Date Expiration Date SIG Comments [...] HC BMI BSA BMI Percentile O2 Sat(%) 11/20/2014 1:42:00 PM 120 mmHg 70 mmHg [...] Routine gynecological examination Nov 20 2014 1:43PM Payers Insurance Name Company Name Plan Name Plan Number Policy Number Policy Group Number Start Date [facility]bs [facility] [id number] N/A [id number] [id number] N/A History of Encounters Visit Date Visit Type Provider 11/20/2014 Office visit KIRAN PRETTY 09/18/2014 Office [...]
--- OUTSIDE RECORDS SUMMARY | 2016-11-24 18:28 | XMS REPORT ---
Author Author KIRAN MOODY [facility] Address [address] [place], [place] [address] Care Team Providers Care Blending Technician Name Role Phone KIRAN MOODY PCP Unavailable [...] AM Decadron, Per 12 Mg [facility]# [address]-53 Reviewed 11/24/2009 12:00 AM THER/PROPH/DIAG INJ SC/IM Reviewed 11/24/2009 12:00 AM Decadron Inj.8mg-([facility]) [facility] #[id number] Reviewed 11/24/2009 12:00 AM Depo-Medrol 120 Mg Im/[facility] [id number] Reviewed 12/12/2013 12:00 AM CYTOPATH C/V THIN LAYER Reviewed 12/12/2013 12:00 AM SPECIMEN HANDLING OFFICE-LAB Reviewed 09/18/2014 12:00 AM THER/PROPH/DIAG INJ SC/IM Reviewed 09/18/2014 12:00 AM Decadron, Per 1 Mg [facility]# [address]-29 Reviewed 09/18/2014 12:00 AM Depo-Medrol, Per 80 Mg [facility]#6610-9417-34 Reviewed 09/18/2014 12:00 AM Rocephin 1 gram [facility]#9706-4870-26 Reviewed Results Summary Data and Description Results [...] Policy Group Number Start Date Bcbs [facility] [id number] N/A Bcbs [facility] [id number] N/A Bcbs [facility] [id number] N/A History of Encounters Visit Date Visit [...]
--- OUTSIDE RECORDS SUMMARY | 2016-11-24 18:29 | XMS REPORT ---
Author Author Kiran Arce [facility] Address [address] [place], [place] [address] Care Team Providers Care Chemistry Physics Teacher Name Role Phone Kiran Arce PCP Unavailable Allergies and Adverse Reactions Name Reaction Notes Albuterol Plan of Treatment Planned Activity Comments Planned Date Planned Time Plan/Goal CMP 05/17/2016 12:00 AM CBC with Diff, automated 05/17/2016 12:00 AM Injection, Subcutaneous/IM 06/08/2016 12:00 AM EKG. 06/09/2016 12:00 AM Holter [...] 12:00 AM Decadron, Per 1 Mg [facility]# [address]-24 Reviewed 02/24/2015 12:00 AM Depo-Medrol, Per 80 Mg [facility]#0762-4204-93 Reviewed 06/04/2015 12:00 AM ASSAY OF TOTAL THYROXINE Reviewed 06/04/2015 12:00 AM ASSAY THYROID STIM HORMONE Reviewed 06/04/2015 12:00 AM ASSAY OF THYROID (T3 OR T4) Reviewed 06/05/2015 12:00 AM Decadron, Per 1 Mg [facility]# [address]-85 Reviewed 06/05/2015 12:00 AM Depo-Medrol, Per 80 Mg [facility]#5610-2897-49 Reviewed 06/05/2015 12:00 AM Rocephin 1 gram [facility]#0995-4908-75 Reviewed 04/23/2016 12:00 AM COMPLETE CBC W/AUTO [...] 12:00 AM CHEST X-RAY 2VW FRONTAL&LATL Returned 06/19/2013 12:00 AM THER/PROPH/DIAG INJ SC/IM Reviewed 06/19/2013 12:00 AM Decadron, Per 12 Mg [facility]# [address]-63 Reviewed 11/24/2009 12:00 AM THER/PROPH/DIAG INJ SC/IM Reviewed 11/24/2009 12:00 AM Decadron Inj.8mg-([facility]) [facility] #[id number] Reviewed 11/24/2009 12:00 AM Depo-Medrol 120 Mg Im/[facility] 0009-286823 Reviewed 12/12/2013 12:00 AM CYTOPATH C/V THIN LAYER Reviewed 12/12/2013 12:00 AM SPECIMEN HANDLING OFFICE-LAB Reviewed 09/18/2014 12:00 AM THER/PROPH/DIAG INJ SC/IM Reviewed 09/18/2014 12:00 AM Decadron, Per 1 Mg [facility]# [address]-72 Reviewed 09/18/2014 12:00 AM Depo-Medrol, Per 80 Mg [facility]#8244-2376-36 Reviewed 09/18/2014 12:00 AM Rocephin 1 gram [facility]#4995-3912-81 Reviewed Results Summary Data and Description Results [...] Counseling Dec 03 2015 10:27AM 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) w/o abn findings Dec [...] 2:36PM Biliary Dyskinesia Jun 09 2016 2:36PM Payers Insurance Name Company Name Plan Name Plan Number Policy Number Policy Group Number Start Date [facility] [id number] N/A BCBS [facility] [id number] N/A BCBS [facility] [id number] N/A BCBS [employer] [id number] N/A History of Encounters Visit Date Visit [...] visit KIRAN MOODY PA 05/14/2013 Office visit IKRAN MOODY PA 04/09/2010 Office visit Kiran Moody PA-C 02/23/2010 Office visit Kiran Moody PA-C 11/24/2009 Office visit Kiran Moody PA-C 05/07/2009 Office visit Kiran Moody PA-C
--- OUTSIDE RECORDS SUMMARY | 2016-11-24 18:29 | XMS REPORT ---
Author Author KIRAN MOODY [facility] Address [address] [place], [place] [address] Care Team Providers Care Engineering Operator Name Role Phone KIRAN MOODY PCP Unavailable Allergies and Adverse Reactions Name Reaction Notes Albuterol Plan of Treatment Planned Activity Comments Planned Date Planned Time Plan/Goal COMPLETE CBC W/AUTO DIFF WBC 02/05/2015 12:00 AM COMPREHEN METABOLIC PANEL 02/05/2015 12:00 AM LIPID PANEL 02/05/2015 12:00 AM ASSAY OF TOTAL THYROXINE 02/05/2015 12:00 AM ASSAY THYROID STIM HORMONE 02/05/2015 12:00 AM ASSAY OF THYROID (T3 OR T4) 02/05/2015 12:00 AM Medications Active Name Start Date [...] 06/19/2013 12:00 AM Decadron, Per 12 Mg [facility]# [address]-06 Reviewed 11/24/2009 12:00 AM THER/PROPH/DIAG INJ SC/IM Reviewed 11/24/2009 12:00 AM Decadron Inj.8mg-([facility]) [facility] #[id number] Reviewed 11/24/2009 12:00 AM Depo-Medrol 120 Mg Im/[facility] 0009-955368 Reviewed 12/12/2013 12:00 AM CYTOPATH C/V THIN LAYER Reviewed 12/12/2013 12:00 AM SPECIMEN HANDLING OFFICE-LAB Reviewed 09/18/2014 12:00 AM THER/PROPH/DIAG INJ SC/IM Reviewed 09/18/2014 12:00 AM Decadron, Per 1 Mg [facility]# [address]-48 Reviewed 09/18/2014 12:00 AM Depo-Medrol, Per 80 Mg [facility]#1532-4991-94 Reviewed 09/18/2014 12:00 AM Rocephin 1 gram [facility]#7657-3800-88 Reviewed Results Summary Not available. History Of [...] Number Policy Group Number Start Date [facility]cbs [facility] [id number] N/A Bc Bcbs [facility] [id number] N/[facility] [id number] N/A History of Encounters Visit Date Visit Type Provider 11/20/2014 Office visit KIRAN PRETTY 09/18/2014 Office visit KIRAN PRETTY 07/26/2014 Office visit KIRAN PRETTY 12/12/2013 Office visit KIRAN PRETTY 11/06/2013 Office visit KIRAN PRETTY 06/19/2013 Office visit KIRAN PRETTY 06/11/2013 Office visit KIRAN MOODY PA 05/14/2013 Office visit KIRAN PRETTY 04/09/2010 Office visit Kiran PRETTY-C 02/23/2010 Office visit Kiran JARRELLC 11/24/2009 Office visit Kiran JARRELLC 05/07/2009 Office visit Kiran Moody PA-C
--- OUTSIDE RECORDS SUMMARY | 2016-11-24 18:30 | XMS REPORT ---
Author Author KIRAN MOODY [facility] Address [address] [place], [place] [address] Care Team Providers Care Extension Agent Name Role Phone KIRAN MOODY PCP Unavailable [...] by intranasal route 2 times per day fluticasone 50 mcg/actuation nasal spray,suspension 03/04/2015 inhale [...] TAKE ONE TABLET BY MOUTH ONCE DAILY Celexa 20 mg oral tablet 12/03/2015 04/01/2016 [...] oral route once daily for 30 days Discontinued Name Start Date Discontinued Date [...] 02/24/2015 12:00 AM Decadron, Per 1 Mg [facility]# [address]-40 Reviewed 02/24/2015 12:00 AM Depo-Medrol, Per 80 Mg [facility]#3562-3353-84 Reviewed 06/04/2015 12:00 AM ASSAY OF TOTAL THYROXINE Returned 06/04/2015 12:00 AM ASSAY THYROID STIM HORMONE Returned 06/04/2015 12:00 AM ASSAY OF THYROID (T3 OR T4) Returned 06/05/2015 12:00 AM Decadron, Per 1 Mg [facility]# [address]-54 Reviewed 06/05/2015 12:00 AM Depo-Medrol, Per 80 Mg [facility]#0231-7807-42 Reviewed 06/05/2015 12:00 AM Rocephin 1 gram [facility]#4343-7272-46 Reviewed 06/19/2013 12:00 AM THER/PROPH/DIAG INJ SC/IM Reviewed 06/19/2013 12:00 AM Decadron, Per 12 Mg [facility]# [address]-34 Reviewed 11/24/2009 12:00 AM THER/PROPH/DIAG INJ SC/IM Reviewed 11/24/2009 12:00 AM Decadron Inj.8mg-([facility]) [facility] #[id number] Reviewed 11/24/2009 12:00 AM Depo-Medrol 120 Mg Im/[facility] [id number] Reviewed 12/12/2013 12:00 AM CYTOPATH C/V THIN LAYER Reviewed 12/12/2013 12:00 AM SPECIMEN HANDLING OFFICE-LAB Reviewed 09/18/2014 12:00 AM THER/PROPH/DIAG INJ SC/IM Reviewed 09/18/2014 12:00 AM Decadron, Per 1 Mg [facility]# [address]-63 Reviewed 09/18/2014 12:00 AM Depo-Medrol, Per 80 Mg [facility]#2894-2523-45 Reviewed 09/18/2014 12:00 AM Rocephin 1 gram [facility]#8386-6959-82 Reviewed Results Summary Data and Description Results [...] Counseling Dec 03 2015 10:27AM 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
--- OUTSIDE RECORDS SUMMARY | 2016-11-24 18:31 | XMS REPORT ---
Author Author Kiran Arce [facility] Address [address] [place], [place] [address] Care Team Providers Care Gas Pumping Station Helper Name Role Phone Kiran Arce PCP Unavailable Allergies and Adverse Reactions Name Reaction Notes Albuterol Plan of Treatment Planned Activity Comments Planned Date Planned Time Plan/Goal CMP 05/17/2016 12:00 AM CBC with Diff, automated 05/17/2016 12:00 AM EKG. 06/09/2016 12:00 AM Injection, Subcutaneous/IM 06/08/2016 12:00 AM Medications Active Name Start Date [...] oral route once daily for 4 days Zithromax Z-[place] 250 mg oral tablet [...] 02/24/2015 12:00 AM Decadron, Per 1 Mg [facility]# [address]-17 Reviewed 02/24/2015 12:00 AM Depo-Medrol, Per 80 Mg [facility]#1558-4603-59 Reviewed 06/04/2015 12:00 AM ASSAY OF TOTAL THYROXINE Reviewed 06/04/2015 12:00 AM ASSAY THYROID STIM HORMONE Reviewed 06/04/2015 12:00 AM ASSAY OF THYROID (T3 OR T4) Reviewed 06/05/2015 12:00 AM Decadron, Per 1 Mg [facility]# [address]-78 Reviewed 06/05/2015 12:00 AM Depo-Medrol, Per 80 Mg [facility]#3270-5725-84 Reviewed 06/05/2015 12:00 AM Rocephin 1 gram [facility]#6335-5490-10 Reviewed 04/23/2016 12:00 AM COMPLETE CBC W/AUTO [...] X-RAY 2VW FRONTAL&LATL Returned 06/09/2016 12:00 AM ECG MONIT/REPRT UP TO 48 HRS Returned 06/19/2013 12:00 AM THER/PROPH/DIAG INJ SC/IM Reviewed 06/19/2013 12:00 AM Decadron, Per 12 Mg [facility]# [address]-24 Reviewed 11/24/2009 12:00 AM THER/PROPH/DIAG INJ SC/IM Reviewed 11/24/2009 12:00 AM Decadron Inj.8mg-([facility]) [facility] #[id number] Reviewed 11/24/2009 12:00 AM Depo-Medrol 120 Mg Im/[facility] [id number] Reviewed 12/12/2013 12:00 AM CYTOPATH C/V THIN LAYER Reviewed 12/12/2013 12:00 AM SPECIMEN HANDLING OFFICE-LAB Reviewed 09/18/2014 12:00 AM THER/PROPH/DIAG INJ SC/IM Reviewed 09/18/2014 12:00 AM Decadron, Per 1 Mg [facility]# [address]-57 Reviewed 09/18/2014 12:00 AM Depo-Medrol, Per 80 Mg [facility]#0476-6939-34 Reviewed 09/18/2014 12:00 AM Rocephin 1 gram [facility]#3498-7807-22 Reviewed Results Summary Data and Description Results [...] Counseling Dec 03 2015 10:27AM 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) w/o abn findings Dec [...] infection, unspecified type Jun 08 2016 9:29AM Payers Insurance Name Company Name Plan Name Plan Number Policy Number Policy Group Number Start Date [facility] [id number] N/A BCBS [facility] [id number] N/A BCBS Bcbs [facility] [id number] N/[facility] [id number] N/A History of Encounters Visit Date Visit Type Provider 06/09/2016 Office visit Kiran Arce MD 06/08/2016 Office visit KIRAN MOODY PA 05/24/2016 Office visit Kiran Arce MD 05/17/2016 Office visit Kiran Arce MD 04/30/2016 Office visit KIRAN MOODY PA 12/03/2015 [...]
== END 2016-11-15 15:35 | disposition home or self-care (01) ==
LOC: ER 12:14
DX: J98.59 Other diseases of mediastinum, not elsewhere classified (principal); I10 Essential (primary) hypertension; Z90.49 Acquired absence of other specified parts of digestive tract
CPT/HCPCS: 36415; 71020; 71275; 80053; 80306; 81000; 83690; 84703; 85025; 85379; 93005

== ENCOUNTER → 2017-01-04 | Outpatient (CLI) | payer OTHER ==
[~2017-01-04] MED LIST: CATHETER FLUSH 10 ML SYR IV PRN; IOHEXOL 350 MG/ML 100 ML (OMNIPAQUE 350) VIAL IV ONE; NS 100 ML (IVPB) BAG IV ONE
--- NOTE | 2017-01-04 16:13 | Diagnostic Imaging Report ---
PROCEDURE: CT chest with contrast only. TECHNIQUE: Multiple contiguous axial images were obtained through the chest after administration of intravenous contrast. DATE: January 04, 2017. COMPARISON: CT chest November 15, 2016. INDICATION: 31-year-old female, tightness of the chest. FINDINGS: There is no identified pulmonary nodule. There is no focal airspace consolidation. The central airways are patent. There is no pneumothorax. There is no pleural effusion. The heart is not enlarged. The main pulmonary artery is normal in diameter. There are limitations for evaluation of pulmonary embolus given the timing of the contrast bolus. There is no identified large central pulmonary embolus. There is an anterior mediastinal mass with an area of relatively low attenuation which measures roughly 2.0 x 2.0 cm in size on axial image 23. There are, however, additional areas of soft tissue attenuation. Complete axial extent of increased attenuation in the anterior mediastinum is approximately 5.5 x 2.7 cm in size as measured on axial image 22. On the comparison CT of November 15, 2016, more extensive areas of abnormal soft tissue attenuation were seen previously. The mass appeared previously also complex cystic and solid in appearance and had prior maximum axial dimensions of 9.0 x 5.9 cm in size. The mass has decreased in size since the comparison exam. There is no identified abnormally enlarged separately noted mediastinal, hilar, or axillary lymph node. The patient is status post cholecystectomy. There is a low-attenuation right renal lesion on axial image 61 measuring 6 mm in size which is too small to characterize. Additional limited evaluation of the visualized portions of the upper abdomen is unremarkable. There is no identified acute bony abnormality. IMPRESSION: CT CHEST. 1. 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 Primary differential diagnostic considerations for the anterior mediastinal mass would include lymphoma, primary thymic neoplasm such as thymoma and thymic carcinoma, and teratoma. 2. No identified pulmonary nodule. 3. No separately noted additional mediastinal, hilar, or axillary lymph node. Dictated by: Dictated on workstation # [id number]
== END ==
LOC: RAD 14:52
PROVIDERS: ATTEND Physician Assistant
DX: R22.2 Localized swelling, mass and lump, trunk (principal)
CPT/HCPCS: 71260